=== PATIENT | male | born 1965 | race American Indian/Alaskan Native ===

== ENCOUNTER 2018-08-07 17:05 | Inpatient (IN) | payer OTHER ==
[2018-08-07] MEDS ORDERED: NACL 0.9% 1000 ML 1,000 ML IV ONE ×4 (17:06→21:18)
--- NOTE | 2018-08-07 17:19 | Emergency Department Report ---
HPI - General Time Seen by Provider: 08/07/18 17:06 - HPI HPI: 53 year old -Polish male presents to the emergency department via EMS from home unresponsive with hyperglycemia and suspicion for diabetic ketoacidosis. The patient has never been to this facility previously. He has a insulin pump and it does not appear to be attached to him and it reads that it needs to be calibrated. The patient was last seen awake and normal around 7:15 AM this morning by his roommate. The roommate returned from work the patient was altered. The patient has had nausea and vomiting and has urinated on himself. He responds slightly to painful stimuli but otherwise is unresponsive. ED Past Medical Hx - Medications Home Medications: Home Medications Medication Instructions Recorded Confirmed Last Taken Type AtorvaSTATin [Lipitor] 40 mg PO QHS 08/07/18 08/07/18 Unknown History Clopidogrel [Plavix] 75 mg PO DAILY 08/07/18 08/07/18 Unknown History Ergocalciferol [Vitamin D2] 50,000 units PO QWEEK 08/07/18 08/07/18 Unknown History Furosemide [Lasix TAB] 40 mg PO QDAY 08/07/18 08/07/18 Unknown History Metoprolol Tartrate 50 mg PO BID 08/07/18 08/07/18 Unknown History amLODIPine [Norvasc] 10 mg PO DAILY 08/07/18 08/07/18 Unknown History cloNIDine [Catapres] 0.2 mg PO TID 08/07/18 08/07/18 Unknown History hydrALAZINE [Apresoline TAB] 10 mg PO Q8HR 08/07/18 08/07/18 Unknown History ED Review of Systems ROS: Stated complaint: AMS Other details as noted in HPI Comment: Unobtainable due to pts medical conditions Physical Exam - Physical Exam Physical Exam: GENERAL: Patient is ill-appearing. HEENT: Normocephalic. Atraumatic. Patient has moist mucous membranes. EYES: Pupils are equal and reactive to light bilaterally. NECK: Supple. Trachea is midline. CHEST/LUNGS: Clear to auscultation. Patient has tachypnea with kussmaul breathing. There is some respiratory distress noted. HEART/CARDIOVASCULAR: Regular. There is mild to moderate tachycardia. There is no obvious murmur. ABDOMEN: Abdomen is soft, nontender. Patient has normal bowel sounds. There is no abdominal distention. SKIN: Skin is warm and dry. NEURO: Patient is mostly unresponsive but does open his eyes to painful stimuli and has been seen spontaneously moving his extremities. MUSCULOSKELETAL: There is no tenderness or deformity. There is no evidence of acute injury. ED Course - Consultations Consultation #1: 08/07/18 18:16 I spoke with the graphics intern on-call, Dr. Bravo, the patient's presentation with diabetic ketoacidosis, acute renal failure and severe hyperkalemia. She is asked for the patient to receive 2 A of sodium bicarbonate followed by a drip. The patient received 15 mg of albuterol and another dose of calcium gluconate. - ABG Interpretation Ph: 7.126 PO2: 217 Bicarbonate: 3 Interpretation: metabolic acidosis ED Medical Decision Making - Lab Data Result diagrams: 08/07/18 17:22 08/07/18 20:30 - EKG Data -: EKG Interpreted by Me - EKG Data Interpretation: other (Ectopic atrial tachycardia at 113 bpm, normal axis, prolonged QTc, RBBB, LPFB) - Radiology Data Radiology results: report reviewed, image reviewed interpreted by me: Chest x-ray shows some hyperinflation of the lungs. No obvious pneumonia, pleur al effusions, pneumothorax or focal consolidation. PROCEDURE: CT head without contrast. TECHNIQUE: Computerized tomography of the head was performed without contrast material. CT DOSE LENGTH PRODUCT: 1048.68 mGycm HISTORY: Altered mental status. COMPARISONS: None. FINDINGS: The ventricles are normal in size. There is an old lacunar infarct in the left basal ganglia. There are no mass lesions. There is no intracranial hemorrhage. The calvarium appears intact. The mastoid air cells and visualized paranasal sinuses are well aerated. IMPRESSION: No evidence of acute disease. This document is electronically signed by Rhonda Davila MD., August 07 2018 06:46:22 PM ET Transcribed By: MRM Dictated By: RHONDA DAVILA MD Electronically Authenticated By: RHONDA DAVILA MD Signed Date/Time: 08/07/18 6484 - Medical Decision Making This patient presents to the emergency department afterward and her unresponsive with a critical high blood sugar. The patient's EKG showed hyperacute, peaked T waves that appear consistent with hyperkalemia. Once the patient was in the emergency department his heart rate fluctuated up to about 200 with a wide QRS. For this reason the patient was immediately given calcium to stabilize the myocardium. The patient had Kussmaul breathing that appeared consistent with severe metabolic acidosis. Despite his tachypnea and signs of some mild respiratory distress, the patient kept his oxygenation up above 95% with the nonrebreather. The patient is mostly unresponsive but does wake up briefly to painful stimuli and was seen moving all of his extremities spontaneously. For These reasons he did not appear to require immediate intubation. Patient's labs came back showing severe diabetic ketoacidosis with a blood sugar of about 1560, venous acidosis of almost 7 and anion gap greater than 50. He was started on an insulin drip. His potassium came back at 8.6 and the graphics intern companion was contacted. He was given 2 ampules of sodium bicarbonate followed by sodium bicarbonate drip, albuterol and of course the insulin drip. He received multiple liters of IV resuscitation. His blood sugar has started to come down to about 1200. His last potassium level was 6.1 and his lactic acid level has come down from about 15-7. The patient will be admitted to the ICU for further evaluation and treatment and was accepted for admission by the hospitalist, Dr. Parkinson. - Differential Diagnosis DKA, HHNK, TIA, CVA, Substance abuse Critical Care Time: Yes Critical care time in (mins) excluding proc time.: 80 Critical care attestation.: If time is entered above; I have spent that time in minutes in the direct care of this critically ill patient, excluding procedure time. Critical care time sp ent on this patient during his initial evaluation, multiple re-evaluations, ordering and interpretation of labs and imaging, discussion with the graphics intern. There is a high probability of clinically significant, sudden, or life-threatening deterioration that has required multiple evaluations and direct attention, intervention, and management. Critical Care Time: 80 minutes ED Disposition Clinical Impression: ARF (acute renal failure) with tubular necrosis, Hyperkalemia, High anion gap metabolic acidosis, Lactic acidosis DKA (diabetic ketoacidoses) Qualifiers: Diabetes mellitus type: type 1 Diabetes mellitus complication detail: with coma Qualified Code(s): E10.11 - Type 1 diabetes mellitus with ketoacidosis with coma Disposition: 09 OP ADMIT IP TO THIS HOSP Is pt being admited?: Yes Condition: Critical Time of Disposition: 22:12
[2018-08-07 17:43] LABS: Mean Corpuscular HGB Conc 27 % (32-34); Mean Corpuscular Volume 103 fl (84-94); Platelet Count 293 K/mm3 (140-440); Red Cell Distribution Width 14.5 % (13.2-15.2)
[2018-08-07] MEDS ORDERED: ZOSYN/NS 4.5GM/100ML 4.5 GM/100 ML VIAL IV ONE (17:43)
[2018-08-07] MEDS ORDERED: CALCIUM CHLORIDE IV ONE (17:44)
[2018-08-07 17:54] LABS: Hematocrit 42.2 % (35.5-45.6); Hemoglobin 11.3 gm/dl (11.8-15.2)
[2018-08-07 17:58] LABS: Partial Thromboplastin Time 20.1 Sec. (24.2-36.6)
[2018-08-07 17:59] LABS: Albumin 3.7 g/dL (3.9-5); Calcium 9.7 mg/dL (8.4-10.2)
[2018-08-07] MEDS ORDERED: D50W (25GM) Syringe IV PRN ×3 (18:02→19:02)
[2018-08-07 18:07] LABS: Amorphous Crystals,Urine Few; Bilirubin,Urine NEG (Negative); Blood,Urine SM (Negative); Color,Urine Yellow (Yellow); Urobilinogen,Urine < 2.0 mg/dL (<2.0)
[2018-08-07] MEDS ORDERED: CALCIUM GLUCONATE 1,000 MG in NACL 0.9% 100 ML IV ONE (18:10)
[2018-08-07] MEDS ORDERED: PROVENTIL IH ONE (18:13)
[2018-08-07 18:24] LABS: Amphetamine Screen,Urine PRESUMPTIVE NEGATIVE; Benzodiazepines Screen,Urine PRESUMPTIVE NEGATIVE; Cannabinoid Screen,Urine PRESUMPTIVE NEGATIVE; Cocaine Screen,Urine PRESUMPTIVE NEGATIVE; Methadone Screen,Urine PRESUMPTIVE NEGATIVE; Opiate Screen,Urine PRESUMPTIVE NEGATIVE
[2018-08-07] MEDS ORDERED: SODIUM BICARBONATE 150 MEQ in D5W 1,000 ML IV ONE (18:30)
[2018-08-07 18:31] LABS: Chol/HDL Ratio 2.38 %
--- NOTE | 2018-08-07 18:33 | XRay Report ---
PROCEDURE: XR CHEST 1V AP TECHNIQUE: Frontal chest x-ray performed portably HISTORY: Altered Mental Status COMPARISONS: None FINDINGS: Normal heart size. Low volume exam. Mildly hyperexpanded and hyperlucent lungs suggestive of underlying emphysema. No focal infiltrate. Degenerative arthritis of bilateral glenohumeral joints. IMPRESSION: Mildly hyperlucent lungs suggestive of underlying emphysema. Low-volume exam. No acute cardiopulmonary abnormality.. This document is electronically signed by Latonia Tolbert MD., August 07 2018 06:31:47 PM ET
--- NOTE | 2018-08-07 18:48 | Cat Scan Report ---
PROCEDURE: CT head without contrast. TECHNIQUE: Computerized tomography of the head was performed without contrast material. CT DOSE LENGTH PRODUCT: 1048.68 mGycm HISTORY: Altered mental status. COMPARISONS: None. FINDINGS: The ventricles are normal in size. There is an old lacunar infarct in the left basal ganglia. There a re no mass lesions. There is no intracranial hemorrhage. The calvarium appears intact. The mastoid ai r cells and visualized paranasal sinuses are well aerated. IMPRESSION: No evidence of acute disease. This document is electronically signed by Reinaldo Rios MD., August 07 2018 06:46:22 PM ET
[2018-08-07] MEDS ORDERED: HumuLIN R 100 UNITS in NACL 0.9% 99 ML IV SCH (19:00)
[2018-08-07] MEDS ORDERED: SODIUM CHLORIDE FLUSH SYRINGE 10 ML IV PRN (19:02)
[2018-08-07] MEDS ORDERED: PROVENTIL IH PRN (19:02)
--- NOTE | 2018-08-07 19:07 | History and Physical Report ---
History of Present Illness Chief complaint: confused, Lethargic History of present illness: 53 YO Male with DM, Malnutrition presents to ED for evaluation. Pt is confused/lethargic and unable to provide history. Pt history taken from EMS, and ED staff. As per staff the patient was found to be confused by his roommate today. EMS was notified, and upon arrival the patient was found to be in distress and transported to [facility] ED. Pt seen and evaluated in ED and found to have DKA with serum glucose of 1580, Acidosis, Encephalopathy, and Acute Renal Failure. No further history obtainable. Pt admitted to ICU and initiated on DKA protocol. Pulmonary team consulted in ED. Nephrology consulted in ED. No prior admissions for review. All listed medication reconciled at time of admission. Past History Past Medical History: diabetes Past Surgical History: No surgical history, Other (UTO) Social history: single, other (lives with roommate). denies: smoking, alcohol abuse, prescription drug abuse Family history: no significant family history (UTO) Medications and Allergies Allergies Allergy/AdvReac Type Severity Reaction Status Date / Time No Known Allergies Allergy Verified 08/07/18 17:35 Home Medications Medication Instructions Recorded Confirmed Last Taken Type AtorvaSTATin [Lipitor] 40 mg PO QHS 08/07/18 08/07/18 Unknown History Clopidogrel [Plavix] 75 mg PO DAILY 08/07/18 08/07/18 Unknown History Ergocalciferol [Vitamin D2] 50,000 units PO QWEEK 08/07/18 08/07/18 Unknown History Furosemide [Lasix TAB] 40 mg PO QDAY 08/07/18 08/07/18 Unknown History Metoprolol Tartrate 50 mg PO BID 08/07/18 08/07/18 Unknown History amLODIPine [Norvasc] 10 mg PO DAILY 08/07/18 08/07/18 Unknown History cloNIDine [Catapres] 0.2 mg PO TID 08/07/18 08/07/18 Unknown History hydrALAZINE [Apresoline TAB] 10 mg PO Q8HR 08/07/18 08/07/18 Unknown History Active Meds: Active Medications Albuterol (Proventil) 2.5 mg IH Q3HRT PRN PRN Reason: Shortness Of Breath Amlodipine Besylate (Norvasc) 10 mg PO DAILY [facility] Atorvastatin Calcium (Lipitor) 40 mg PO QHS [facility] Clonidine HCl (Catapres) 0.2 mg PO TID [facility] Clopidogrel Bisulfate (Plavix) 75 mg PO DAILY [facility] Dextrose (D50w (25gm) Syringe) 0 ml IV PRN PRN PRN Reason: Hypoglycemia Dextrose (D50w (25gm) Syringe) 0 ml IV PRN PRN PRN Reason: Hypoglycemia Dextrose (D50w (25gm) Syringe) 0 ml IV ONCE PRN PRN Reason: Hypoglycemia Ergocalciferol (Vitamin D2) 50,000 unit PO QWEEK [facility] Furosemide (Lasix) 40 mg PO QDAY [facility] Hydralazine HCl (Apresoline) 10 mg PO Q8HR [facility] Insulin Human Regular 100 (units/ Sodium Chloride) 100 mls @ 7 mls/hr IV TITR [facility]; Protocol Sodium Bicarbonate 150 meq/ (Dextrose) 1,150 mls @ 125 mls/hr IV DIRECT ONE Stop: 08/08/18 03:41 Sodium Chloride (Nacl 0.9% 1000 Ml) 1,000 mls @ 999 mls/hr IV BOLUS ONE Stop: 08/07/18 20:02 Insulin Human Regular 100 (units/ Sodium Chloride) 100 mls @ 1 mls/hr IV TITR [facility]; Protocol Metoprolol Tartrate (Lopressor) 50 mg PO BID [facility] Sodium Chloride (Sodium Chloride Flush Syringe 10 Ml) 10 ml IV BID [facility] Sodium Chloride (Sodium Chloride Flush Syringe 10 Ml) 10 ml IV PRN PRN PRN Reason: LINE FLUSH Review of Systems ROS unobtainable: due to mental status Exam - Constitutional Vitals: Temp Pulse Resp BP Pulse Ox 94.9 F L 111 H 30 H 106/55 100 08/07/18 17:36 08/07/18 17:36 08/07/18 17:36 08/07/18 17:36 08/07/18 17:41 General appearance: Present: severe distress - EENT Eyes: Present: PERRL, miosis ENT: hearing intact, clear oral mucosa - Neck Neck: Present: supple, normal ROM - Respiratory Respiratory effort: labored Respiratory: bilateral: diminished, rhonchi - Cardiovascular Rhythm: other (tachycardia) Heart Sounds: Present: S1 & S2. Absent: rub, click - Extremities Extremities: pulses symmetrical, No edema Peripheral Pulses: within normal limits - Abdominal General gastrointestinal: Present: soft, non-tender, non-distended, normal bowel sounds Male genitourinary: Present: normal - Integumentary Integumentary: Present: warm, dry, clammy, decreased turgor - Musculoskeletal Musculoskeletal: generalized weakness - Psychiatric Psychiatric: no appropriate mood/affect, no intact judgment & insight, no memory intact - Neurologic Neurologic: no focal deficits, moves all extremities, no gait normal Results - Labs CBC & Chem 7: 08/07/18 17:22 08/07/18 18:46 Labs: Abnormal lab results 08/07/18 08/07/18 08/07/18 Range/Units 17:14 17:22 17:22 WBC 14.9 H (4.5-11.0) K/mm3 Hgb 11.3 L (11.8-15.2) gm/dl MCV 103 H (84-94) fl MCHC 27 L (32-34) % APTT (24.2-36.6) Sec. VBG pH (7.320-7.420) Sodium (137-145) mmol/L Potassium (3.6-5.0) mmol/L Chloride (98-107) mmol/L Carbon Dioxide (22-30) mmol/L BUN (9-20) mg/dL Creatinine (0.8-1.5) mg/dL Glucose (75-100) mg/dL POC Glucose > 500 H (70-105) Lactic Acid 14.00 H* (0.7-2.0) mmol/L Alkaline Phosphatase (35-129) units/L Troponin T (0.00-0.029) ng/mL Albumin (3.9-5) g/dL 08/07/18 08/07/18 08/07/18 Range/Units 17:22 17:22 17:22 WBC (4.5-11.0) K/mm3 Hgb (11.8-15.2) gm/dl MCV (84-94) fl MCHC (32-34) % APTT 20.1 L (24.2-36.6) Sec. VBG pH 7.012 L* (7.320-7.420) Sodium 127 L (137-145) mmol/L Potassium 8.4 H* (3.6-5.0) mmol/L Chloride 73.9 L (98-107) mmol/L Carbon Dioxide 4 L* (22-30) mmol/L BUN 65 H (9-20) mg/dL Creatinine 4.5 H (0.8-1.5) mg/dL Glucose 1580 H* (75-100) mg/dL POC Glucose (70-105) Lactic Acid (0.7-2.0) mmol/L Alkaline Phosphatase 173 H (35-129) units/L Troponin T 0.104 H* (0.00-0.029) ng/mL Albumin 3.7 L (3.9-5) g/dL Assessment and Plan - Patient Problems (1) DKA (diabetic ketoacidoses) Current Visit: Yes Status: Acute Qualifiers: Diabetes mellitus complication detail: with coma Plan to address problem: Admit to ICU: Initiate DKA protocol, Insulin drip, Serial BMP, monitor anion gap, IVF resuscitation, monitor uop q shift,. The high probability of a clinically significant, sudden or life threatening deterioration of the [endocrine, neuro, respiratory, renal] system(s) required my full and direct attention, intervention and personal management. The aggregate critical care time was [65] minutes. This time is in addition to time spent performing reported procedures but includes the following: [x] Data Review and interpretation [x] Patient assessment and monitoring of vital signs [x] Documentation [x] Medication orders and management (2) Encephalopathies Current Visit: Yes Status: Acute Plan to address problem: CT head, neuro check, treat dka, IVF resuscitation therapy, (3) Acidosis Current Visit: Yes Status: Acute Plan to address problem: Bicarbonate drip, IVF resuscitation, nephrology consulted and recommend bicarb drip, treat dka (4) ARF (acute renal failure) with tubular necrosis Current Visit: Yes Status: Acute Plan to address problem: IVF resuscitation therapy,monitor uop q shift, avoid nephrotoxic agents. (5) SIRS (systemic inflammatory response syndrome) Current Visit: Yes Status: Acute Plan to address problem: Empiric antibiotic therapy, CBC, CMP, (6) DVT prophylaxis Current Visit: Yes Status: Acute Plan to address problem: SCD to BLE while in bed, prophylactic heparin
[2018-08-07 19:28] LABS: Calcium 10.2 mg/dL (8.4-10.2)
[2018-08-07] MEDS ORDERED: HumuLIN R IV ONE (19:42)
[2018-08-07] MEDS ORDERED: ZOSYN/NS 2.25 GM/50ML 2.25 GM/50 ML BAG IV SCH (20:00)
[2018-08-07] MEDS: CATAPRES PO SCH (20:16)
[2018-08-07] MEDS ORDERED: HumuLIN R ONE (20:44)
[2018-08-07] MEDS ORDERED: NACL 0.9% 1000 ML 1,000 ML ONE (20:45)
[2018-08-07 20:52] LABS: BUN/Creatinine Ratio 15; Blood Urea Nitrogen 69 mg/dL (9-20); Calcium 9.4 mg/dL (8.4-10.2); Hemolysis Index 170
[2018-08-07 20:53] LABS: Calcium 8.6 mg/dL (8.4-10.2)
[2018-08-07] MEDS ORDERED: NACL 0.9% 1000 ML 2,000 ML ONE (21:02)
--- NOTE | 2018-08-07 21:23 | Consultation ---
History of Present Illness - Reason for Consult acute renal failure, hyperkalemia, metabolic acidosis - History of Present Illness History is limited obtained from chart as patient is lethargic and tachpneic unable to provide a history 53 year old with medical history signficant for Uncontrolled DM type II brought to the ER today after being noted to be confused by his roommate. He was noted to be lethargic, tachycardic and tachypneic . Labs signficant for lactate of 12 , Potassium of 8.4 and a serum bicarbonate of 5 .it is unclear when he took his last dose of insulin Nephrology consulted for hyperkalemia , LAMONT and electrolyte abnormalities. Past History Past Medical History: diabetes Past Surgical History: No surgical history, Other (UTO) Social history: single, other (lives with roommate). denies: smoking, alcohol abuse, prescription drug abuse Family history: no significant family history (UTO) Medications and Allergies Allergies Allergy/AdvReac Type Severity Reaction Status Date / Time No Known Allergies Allergy Verified 08/07/18 17:35 Home Medications Medication Instructions Recorded Confirmed Last Taken Type AtorvaSTATin [Lipitor] 40 mg PO QHS 08/07/18 08/07/18 Unknown History Clopidogrel [Plavix] 75 mg PO DAILY 08/07/18 08/07/18 Unknown History Ergocalciferol [Vitamin D2] 50,000 units PO QWEEK 08/07/18 08/07/18 Unknown History Furosemide [Lasix TAB] 40 mg PO QDAY 08/07/18 08/07/18 Unknown History Metoprolol Tartrate 50 mg PO BID 08/07/18 08/07/18 Unknown History amLODIPine [Norvasc] 10 mg PO DAILY 08/07/18 08/07/18 Unknown History cloNIDine [Catapres] 0.2 mg PO TID 08/07/18 08/07/18 Unknown History hydrALAZINE [Apresoline TAB] 10 mg PO Q8HR 08/07/18 08/07/18 Unknown History Active Meds: Active Medications Albuterol (Proventil) 2.5 mg IH Q3HRT PRN PRN Reason: Shortness Of Breath Amlodipine Besylate (Norvasc) 10 mg PO DAILY [facility] Atorvastatin Calcium (Lipitor) 40 mg PO QHS [facility] Clonidine HCl (Catapres) 0.2 mg PO TID [facility] Clopidogrel Bisulfate (Plavix) 75 mg PO DAILY [facility] Dextrose (D50w (25gm) Syringe) 0 ml IV PRN PRN PRN Reason: Hypoglycemia Dextrose (D50w (25gm) Syringe) 0 ml IV ONCE PRN PRN Reason: Hypoglycemia Ergocalciferol (Vitamin D2) 50,000 unit PO QWEEK [facility] Heparin Sodium (Porcine) (Heparin) 5,000 unit SUB-Q Q12HR [facility] Hydralazine HCl (Apresoline) 10 mg PO Q8HR [facility] Sodium Bicarbonate 150 meq/ (Dextrose) 1,150 mls @ 200 mls/hr IV DIRECT ONE Stop: 08/08/18 00:14 Last Admin: 08/07/18 19:30 Dose: 125 mls/hr Documented by: Insulin Human Regular 100 (units/ Sodium Chloride) 100 mls @ 1 mls/hr IV TITR [facility]; Protocol Piperacillin Sod/Tazobactam Sod (Zosyn/Ns 2.25 Gm/50ml) 2.25 gm in 50 mls @ 100 mls/hr IV Q8H [facility] Stop: 08/10/18 23:59 Sodium Chloride (Nacl 0.9% 1000 Ml) 1,000 mls @ 999 mls/hr IV BOLUS ONE Stop: 08/07/18 22:18 Last Admin: 08/07/18 21:19 Dose: 999 mls/hr Documented by: Metoprolol Tartrate (Lopressor) 50 mg PO BID [facility] Sodium Bicarbonate (Sodium Bicarbonate 50meq Syringe) 100 meq IV ONCE ONE Stop: 08/07/18 21:22 Sodium Chloride (Sodium Chloride Flush Syringe 10 Ml) 10 ml IV BID [facility] Sodium Chloride (Sodium Chloride Flush Syringe 10 Ml) 10 ml IV PRN PRN PRN Reason: LINE FLUSH Review of Systems ROS unobtainable: due to mental status Exam - Vital Signs Vital signs: Vital Signs Temp Pulse Resp BP Pulse Ox 94.9 F L 111 H 30 H 106/55 100 08/07/18 17:36 08/07/18 17:36 08/07/18 17:36 08/07/18 17:36 08/07/18 17:36 - General Appearance General appearance: appears stated age, moderate distress, anxious, other (tachpneic. chills) EENT: ATNC, PERRL, mucous membranes dry Neck: Present: neck supple, trachea midline Respiratory: Clear to Ascultation, Using Accesory Muscles Heart: tachycardia, S1S2 Gastrointestinal: Present: normal, normoactive bowel sounds Integumentary: no rash Neurologic: alert and oriented x3 Musculoskeletal: Absent: joint swelling Psychiatric: depressed Results - Lab Results 08/07/18 17:22 08/07/18 20:30 Most recent lab results Calcium 8.6 mg/dL (8.4-10.2) 08/07/18 20:30 Phosphorus 12.20 mg/dL (2.5-4.5) H 08/07/18 20:00 Magnesium 3.00 mg/dL (1.7-2.3) H 08/07/18 20:00 Assessment and Plan - Patient Problems (1) Acute kidney injury (nontraumatic) Current Visit: Yes Status: Acute Plan to address problem: Acute Kidney injury: -Severe Acute kidney injury - Baseline creatinine unknown - current creatinine : 4.9 - Severe hypovoluemia and intravascular depletion with marked elevated lactate of 12!!!! - I personally oversaw patient administered 5 L of Saline bolus in the ED . - Ferrari placed with minimal output -Serial labs -Will continue Bicarb infusion @200cc/hr. - Avoid nephrotoxins - obtain renal US (2) DKA (diabetic ketoacidoses) Current Visit: Yes Status: Acute Qualifiers: Diabetes mellitus type: type 1 Diabetes mellitus complication detail: with coma Qualified Code(s): E10.11 - Type 1 diabetes mellitus with ketoacidosis with coma Plan to address problem: DKA - anion gap metabolic acidosis 2/2 DKA and renal failure Glucose greater than 1500mg/dl - admitted with hyponatremia however with correction for degree of hyperglycemia the sodium is falsely low and will worsen with hydration however given hy povoluemic hypernatremia will replete volume first. - severe acidosis with tachypnea - received 100meq of bicarb without improvement - received additional 100meq of bicarb -Then continue bicarb infusion -received insulin bolus - continue insulin infusion - monitor fingersticks. (3) Hyperkalemia Current Visit: Yes Status: Acute Plan to address problem: Severe life threatening hyperkalemia Potassium : 8.4 - EKG with peaked T waves - hyperkalemia is 2/2 cellular shifts in the setting of hyperglycemia aggravated by renal failure - Will give 2 amps of calcium gluconate - continue insulin adminstration per DKA protocol - Repeat potassium STAT ordered at bedside , potassium improved from 8.4- 6.1 - Albuterol 20mg x 1 (4) SIRS (systemic inflammatory response syndrome) Current Visit: Yes Status: Acute Plan to address problem: SIRS -LEUKOCYTOSIS , tachypnea , tachycardia - marked elevated lactate and organ compromise - has been started on antbiotics for concern for severe sepsis. Critical care time spent at bedside evaluating patient and resuscitation with fluids was 40mins.
[2018-08-07 21:27] LABS: Band Neutrophils # (Manual) 0.1 K/mm3; Basophils % (Manual) 0 % (0.0-1.8); Eosinophils % (Manual) 0 % (0.0-4.3); Total Cells Counted 100
[2018-08-07 21:28] LABS: Anisocytosis 1+; Platelet Estimate Consistent w Auto
[2018-08-07] MEDS ORDERED: ZOSYN/NS 4.5GM/100ML 4.5 GM/100 ML VIAL IV SCH (22:00)
[2018-08-07] MEDS: ZOSYN/NS 2.25 GM/50ML 2.25 GM/50 ML BAG IV SCH (22:00)
[2018-08-07] MEDS ORDERED: LOPRESSOR ONE ×2 (23:01→23:04)
[2018-08-07] MEDS ORDERED: HEPARIN ONE (23:02)
[2018-08-07] MEDS ORDERED: APRESOLINE ONE (23:05)
[2018-08-07] MEDS: APRESOLINE PO SCH (23:11)
[2018-08-07] MEDS: HEPARIN SUB-Q SCH (23:12)
[2018-08-07] MEDS: SODIUM CHLORIDE FLUSH SYRINGE 10 ML IV SCH (23:13)
[2018-08-07] MEDS: LOPRESSOR PO SCH (23:13)
[2018-08-07 23:24] LABS: Calcium 8.4 mg/dL (8.4-10.2)
[2018-08-08 00:47] LABS: Calcium 8.2 mg/dL (8.4-10.2)
[2018-08-08] MEDS ORDERED: NACL 0.9% 1000 ML 1,000 ML IV SCH (01:00)
[2018-08-08] MEDS ORDERED: SODIUM CHLORIDE IV ONE (01:00)
[2018-08-08] MEDS ORDERED: SODIUM BICARBONATE 50 MEQ IV ONE (01:00)
[2018-08-08] MEDS ORDERED: POTASSIUM CHLORIDE 20 MEQ IV ONE (01:00)
[2018-08-08] MEDS ORDERED: LACTATED RINGERS 1,000 ML ONE (01:14)
[2018-08-08] MEDS ORDERED: LACTATED RINGERS 1,000 ML IV ONE (01:15)
[2018-08-08 01:56] LABS: Calcium 8.6 mg/dL (8.4-10.2)
[2018-08-08] MEDS: HumuLIN R 100 UNITS in NACL 0.9% 99 ML IV SCH ×2 (02:48→06:16)
[2018-08-08 03:08] LABS: Calcium 8.4 mg/dL (8.4-10.2)
[2018-08-08 03:37] LABS: Calcium 8.8 mg/dL (8.4-10.2)
[2018-08-08 05:04] LABS: Calcium 8.5 mg/dL (8.4-10.2)
[2018-08-08 05:30] LABS: Calcium 8.8 mg/dL (8.4-10.2)
[2018-08-08] MEDS: ZOSYN/NS 2.25 GM/50ML 2.25 GM/50 ML BAG IV SCH (05:45)
[2018-08-08] MEDS ORDERED: NS 0.45/KCL 20MEQ 20 MEQ/1,000 ML BAG IV SCH (06:00)
[2018-08-08] MEDS: APRESOLINE PO SCH ×3 (06:29→21:42)
[2018-08-08 06:55] LABS: Calcium 8.4 mg/dL (8.4-10.2)
[2018-08-08] MEDS: CATAPRES PO SCH ×3 (08:15→21:42)
[2018-08-08 08:51] LABS: Calcium 8.3 mg/dL (8.4-10.2)
--- NOTE | 2018-08-08 09:40 | Progress Note ---
Assessment and Plan Impression * Acute kidney injury * Hyperkalemia * DKA * Severe metabolic acidosis secondary to above Recommendations * Patient's hyperkalemia has been corrected with medical management and treatment of DKA * He is currently nonoliguric. Serum creatinine however remains elevated * His urine shows 2+ dipstick protein and small blood and 16 RBCs per high-power field. * Check renal ultrasound, fractional excretion of sodium as well as vasculitis w orkup * Continue aggressive IV hydration * Continue management for DKA * Renal ultrasound to assess kidney size and echogenicity * He may have some degree of underlying chronic kidney disease. Baseline renal function is not known * Avoid nephrotoxins * Monitor fluid status and electrolytes closely Subjective Date of service: 08/08/18 Interval history: Patient seen in the emergency room. Waiting for an ICU bed. He is currently obtunded. Unable to get any information from him. He appears comfortable. Currently on oxygen at 2 L/m. Oxygen saturation 100%. Has indwelling Ferrari catheter in place Objective - Vital Signs Vital signs: Vital Signs - 12hr 08/07/18 08/07/18 08/07/18 22:01 22:23 22:30 Temperature 98 F Pulse Rate 127 H 129 H Respiratory 24 25 H Rate Blood Pressure 153/57 156/64 Blood Pressure [Left] O2 Sat by Pulse 100 100 Oximetry 08/07/18 08/07/18 08/07/18 23:00 23:11 23:13 Temperature Pulse Rate 128 H 129 H 129 H Respiratory 25 H Rate Blood Pressure 165/62 165/62 165/62 Blood Pressure [Left] O2 Sat by Pulse 100 Oximetry 08/07/18 08/08/18 08/08/18 23:30 00:00 00:30 Temperature Pulse Rate 128 H 97 H 89 Respiratory 32 H 24 30 H Rate Blood Pressure 152/58 124/54 124/60 Blood Pressure [Left] O2 Sat by Pulse 100 100 100 Oximetry 08/08/18 08/08/18 08/08/18 01:01 01:30 01:42 Temperature Pulse Rate 91 H 93 H 94 H Respiratory 22 22 22 Rate Blood Pressure 147/65 150/69 Blood Pressure 150/69 [Left] O2 Sat by Pulse 100 100 100 Oximetry 08/08/18 08/08/18 08/08/18 02:00 02:30 03:00 Temperature Pulse Rate 96 H 101 H 99 H Respiratory 23 18 24 Rate Blood Pressure 148/65 141/63 148/62 Blood Pressure [Left] O2 Sat by Pulse 100 100 99 Oximetry 08/08/18 08/08/18 08/08/18 03:30 04:00 04:27 Temperature 99 F Pulse Rate 97 H 93 H 93 H Respiratory 20 18 17 Rate Blood Pressure 149/65 140/63 Blood Pressure 152/70 [Left] O2 Sat by Pulse 100 100 100 Oximetry 08/08/18 08/08/18 08/08/18 04:30 05:00 05:30 Temperature Pulse Rate 97 H 94 H 94 H Respiratory 16 18 14 Rate Blood Pressure 144/61 145/68 149/63 Blood Pressure [Left] O2 Sat by Pulse 100 100 100 Oximetry 08/08/18 06:00 Temperature Pulse Rate 96 H Respiratory 23 Rate Blood Pressure 146/60 Blood Pressure [Left] O2 Sat by Pulse 100 Oximetry - General Appearance General appearance: well-developed, well-nourished, appears stated age EENT: PERRL, mucous membranes moist Neck: no JVD, no thyromegaly, no carotid bruit, supple Respiratory: Present: Clear to Ascultation Cardiology: regular, normal heart rate Gastrointestinal: normal, normoactive bowel sounds Integumentary: no rash, other (no edema) - Lab 08/07/18 17:22 08/08/18 08:14 Most recent lab results Calcium 8.3 mg/dL (8.4-10.2) L 08/08/18 08:14 Phosphorus 12.20 mg/dL (2.5-4.5) H 08/07/18 20:00 Magnesium 3.00 mg/dL (1.7-2.3) H 08/07/18 20:00 Medications & Allergies - Medications Allergies/Adverse Reactions: Allergies No Known Allergies Allergy (Verified 08/07/18 17:35) Home Medications: Home Medications Medication Instructions Recorded Confirmed Last Taken Type AtorvaSTATin [Lipitor] 40 mg PO QHS 08/07/18 08/07/18 Unknown History Clopidogrel [Plavix] 75 mg PO DAILY 08/07/18 08/07/18 Unknown History Ergocalciferol [Vitamin D2] 50,000 units PO QWEEK 08/07/18 08/07/18 Unknown History Furosemide [Lasix TAB] 40 mg PO QDAY 08/07/18 08/07/18 Unknown History Metoprolol Tartrate 50 mg PO BID 08/07/18 08/07/18 Unknown History amLODIPine [Norvasc] 10 mg PO DAILY 08/07/18 08/07/18 Unknown History cloNIDine [Catapres] 0.2 mg PO TID 08/07/18 08/07/18 Unknown History hydrALAZINE [Apresoline TAB] 10 mg PO Q8HR 08/07/18 08/07/18 Unknown History Active Medications: Generic Name Dose Route Start Last Admin Trade Name Freq PRN Reason Stop Dose Admin Albuterol 2.5 mg 08/07/18 19:02 Proventil IH Q3HRT PRN Shortness Of Breath Amlodipine Besylate 10 mg 08/08/18 10:00 Norvasc PO DAILY [facility] Atorvastatin Calcium 40 mg 08/07/18 22:00 08/07/18 23:12 Lipitor PO 40 mg QHS [facility] Administration Clonidine HCl 0.2 mg 08/07/18 20:00 08/07/18 20:16 Catapres PO Not Given TID [facility] Clopidogrel Bisulfate 75 mg 08/08/18 10:00 Plavix PO DAILY [facility] Dextrose 0 ml 08/07/18 19:02 D50w (25gm) Syringe IV PRN PRN Hypoglycemia Ergocalciferol 50,000 unit 08/14/18 10:00 Vitamin D2 PO QWEEK [facility] Heparin Sodium (Porcine) 5,000 unit 08/07/18 22:00 08/07/18 23:12 Heparin SUB-Q 5,000 unit Q12HR [facility] Administration Hydralazine HCl 10 mg 08/07/18 22:00 08/08/18 06:29 Apresoline PO 10 mg Q8HR [facility] Administration Insulin Human Regular 100 100 mls @ 1 mls/hr 08/07/18 20:00 08/08/18 06:46 units/ Sodium Chloride IV 22 units/hr TITR [facility] 22 mls/hr Titration Protocol 1 UNITS/HR Piperacillin Sod/Tazobactam Sod 2.25 gm in 50 mls @ 100 mls/hr 08/07/18 22:00 08/08/18 05:45 Zosyn/Ns 2.25 Gm/50ml IV 08/10/18 23:59 100 mls/hr Q8H [facility] Administration Potassium Chloride/Sodium Chloride 20 meq in 1,000 mls @ 150 mls/hr 08/08/18 06:00 08/08/18 06:12 Ns 0.45/Kcl 20meq IV 150 mls/hr DIRECT [facility] Administration Metoprolol Tartrate 50 mg 08/07/18 22:00 08/07/18 23:13 Lopressor PO 50 mg BID [facility] Administration Sodium Chloride 10 ml 08/07/18 22:00 08/07/18 23:13 Sodium Chloride Flush Syringe 10 Ml IV 10 ml BID [facility] Administration Sodium Chloride 10 ml 08/07/18 19:02 Sodium Chloride Flush Syringe 10 Ml IV PRN PRN LINE FLUSH
[2018-08-08 09:55] LABS: Calcium 8.8 mg/dL (8.4-10.2)
[2018-08-08] MEDS ORDERED: LASIX PO SCH (10:00)
--- NOTE | 2018-08-08 10:38 | Progress Note ---
Assessment and Plan Assessment and plan: 53-year-old man who was found unresponsive, he was found to have very elevated glucose. The patient has insulin pump, it was not attached to him at the time of admission. He was found by his roommates who didn't called the EMS, he had vomited on itself and urinated on himself at that time. CT head no acute findings Chest x-ray suggestive of emphysema, no acute findings Diagnoses Hyperglycemic hyperosmolar nonketotic state Pseudohyponatremia Acute kidney injury due to vasomotor nephropathy Acute metabolic encephalopathy Uncontrolled diabetes Sepsis with organ dysfunction gram neg bacteremia htn urgency Plan Patient has been on insulin drip, will attempt to transition to sq insulins Continue IV fluids Nephrology consultation given acute kidney injury, however his baseline creatinine is unknown source at this time SIRS; no evidence of infection at this time -ID consult, iv abx, fup cultures optimize BP meds DVT prophylaxis with heparin Critical care time 35 minutes History Interval history: Review of systems Constitutional: having fevers and malaise, no joint pains CVS: No chest pain, no orthopnea, no dyspnea on exertion, no pedal edema GI: No abdominal pain, no diarrhea, no vomiting, no constipation Respiratory: No shortness of breath, no wheezing, no coughing Hospitalist Physical - Physical exam Narrative exam: General.: toxic appearance, lethargic HEENT: Moist mucous membranes, extraocular muscles intact, no lymphadenopathy Neck: supple Cardiac: S1-S2 heard Lungs: clear to auscultation bilaterally Abdomen: soft , nontender, nondistended, bowel sounds positive Extremities: no edema clubbing or cyanosis Skin: no rash or lesions Neurologic: no gross focal deficits Psych: calm, and cooperative - Constitutional Vitals: Temp Pulse Resp BP Pulse Ox 99 F 96 H 23 146/60 100 08/08/18 04:27 08/08/18 06:00 08/08/18 06:00 08/08/18 06:00 08/08/18 06:00 General appearance: Present: severe distress Results - Labs CBC & Chem 7: 08/09/18 11:06 08/09/18 04:34 Labs: Laboratory Last Values WBC 14.9 K/mm3 (4.5-11.0) H 08/07/18 17:22 RBC 4.10 M/mm3 (3.65-5.03) 08/07/18 17:22 Hgb 11.3 gm/dl (11.8-15.2) L 08/07/18 17:22 Hct 42.2 % (35.5-45.6) 08/07/18 17:22 MCV 103 fl (84-94) H 08/07/18 17:22 MCH 28 pg (28-32) 08/07/18 17:22 MCHC 27 % (32-34) L 08/07/18 17:22 RDW 14.5 % (13.2-15.2) 08/07/18 17:22 Plt Count 293 K/mm3 (140-440) 08/07/18 17:22 Add Manual Diff Complete 08/07/18 17:22 Total Counted 100 08/07/18 17:22 Seg Neuts % (Manual) 76.0 % (40.0-70.0) H 08/07/18 17:22 Band Neutrophils % 1.0 % 08/07/18 17:22 Lymphocytes % (Manual) 12.0 % (13.4-35.0) L 08/07/18 17:22 Reactive Lymphs % (Man) 0 % 08/07/18 17:22 Monocytes % (Manual) 11.0 % (0.0-7.3) H 08/07/18 17:22 Eosinophils % (Manual) 0 % (0.0-4.3) 08/07/18 17:22 Basophils % (Manual) 0 % (0.0-1.8) 08/07/18 17:22 Metamyelocytes % 0 % 08/07/18 17:22 Myelocytes % 0 % 08/07/18 17:22 Promyelocytes % 0 % 08/07/18 17:22 Blast Cells % 0 % 08/07/18 17:22 Nucleated RBC % Not Reportable 08/07/18 17:22 Seg Neutrophils # Man 11.3 K/mm3 (1.8-7.7) H 08/07/18 17:22 Band Neutrophils # 0.1 K/mm3 08/07/18 17:22 Lymphocytes # (Manual) 1.8 K/mm3 (1.2-5.4) 08/07/18 17:22 Abs React Lymphs (Man) 0.0 K/mm3 08/07/18 17:22 Monocytes # (Manual) 1.6 K/mm3 (0.0-0.8) H 08/07/18 17:22 Eosinophils # (Manual) 0.0 K/mm3 (0.0-0.4) 08/07/18 17:22 Basophils # (Manual) 0.0 K/mm3 (0.0-0.1) 08/07/18 17:22 Metamyelocytes # 0.0 K/mm3 08/07/18 17:22 Myelocytes # 0.0 K/mm3 08/07/18 17:22 Promyelocytes # 0.0 K/mm3 08/07/18 17:22 Blast Cells # 0.0 K/mm3 08/07/18 17:22 WBC Morphology Not Reportable 08/07/18 17:22 Hypersegmented Neuts Not Reportable 08/07/18 17:22 Hyposegmented Neuts Not Reportable 08/07/18 17:22 Hypogranular Neuts Not Reportable 08/07/18 17:22 Smudge Cells Not Reportable 08/07/18 17:22 Toxic Granulation Not Reportable 08/07/18 17:22 Toxic Vacuolation Not Reportable 08/07/18 17:22 Dohle Bodies Not Reportable 08/07/18 17:22 Pelger-Huet Anomaly Not Reportable 08/07/18 17:22 Kojo Rods Not Reportable 08/07/18 17:22 Platelet Estimate Consistent w auto 08/07/18 17:22 Clumped Platelets Not Reportable 08/07/18 17:22 Plt Clumps, EDTA Not Reportable 08/07/18 17:22 Large Platelets Not Reportable 08/07/18 17:22 Giant Platelets Not Reportable 08/07/18 17:22 Platelet Satelliting Not Reportable 08/07/18 17:22 Plt Morphology Comment Not Reportable 08/07/18 17:22 RBC Morphology Not Reportable 08/07/18 17:22 Dimorphic RBCs Not Reportable 08/07/18 17:22 Polychromasia Not Reportable 08/07/18 17:22 Hypochromasia Not Reportable 08/07/18 17:22 Poikilocytosis Not Reportable 08/07/18 17:22 Anisocytosis 1+ 08/07/18 17:22 Microcytosis Not Reportable 08/07/18 17:22 Macrocytosis Not Reportable 08/07/18 17:22 Spherocytes Not Reportable 08/07/18 17:22 Pappenheimer Bodies Not Reportable 08/07/18 17:22 Sickle Cells Not Reportable 08/07/18 17:22 Target Cells Not Reportable 08/07/18 17:22 Tear Drop Cells Not Reportable 08/07/18 17:22 Ovalocytes Not Reportable 08/07/18 17:22 Helmet Cells Not Reportable 08/07/18 17:22 [place] Bodies Not Reportable 08/07/18 17:22 [place] Rings Not Reportable 08/07/18 17:22 Niesha Cells Not Reportable 08/07/18 17:22 Bite Cells Not Reportable 08/07/18 17:22 Crenated Cell Not Reportable 08/07/18 17:22 Elliptocytes Not Reportable 08/07/18 17:22 Acanthocytes (Spur) Not Reportable 08/07/18 17:22 Rouleaux Not Reportable 08/07/18 17:22 Hemoglobin C Crystals Not Reportable 08/07/18 17:22 Schistocytes Not Reportable 08/07/18 17:22 Malaria parasites Not Reportable 08/07/18 17:22 Sanjay Bodies Not Reportable 08/07/18 17:22 Hem Pathologist Commnt No 08/07/18 17:22 PT 13.8 Sec. (12.2-14.9) 08/07/18 17:22 INR 1.00 (0.87-1.13) 08/07/18 17:22 APTT 20.1 Sec. (24.2-36.6) L 08/07/18 17:22 POC ABG pH 7.126 (7.35-7.45) L 08/07/18 18:25 POC ABG pO2 217 (80-105) H 08/07/18 18:25 POC ABG HCO3 3.4 (22-26 mml/L) 08/07/18 18:25 POC ABG Total CO2 < 5 (23-27mmol/L) 08/07/18 18:25 POC ABG O2 Sat 100 08/07/18 18:25 POC ABG Base Excess -26 ((-2) - (+3)mmol/L) 08/07/18 18:25 VBG pH 7.454 (7.320-7.420) H 08/08/18 05:10 FiO2 98 % 08/07/18 18:25 Sodium 153 mmol/L (137-145) H 08/08/18 09:23 Potassium 3.3 mmol/L (3.6-5.0) L 08/08/18 09:23 Chloride 110.8 mmol/L (98-107) H 08/08/18 09:23 Carbon Dioxide 30 mmol/L (22-30) 08/08/18 09:23 Anion Gap 16 mmol/L 08/08/18 09:23 BUN 58 mg/dL (9-20) H 08/08/18 09:23 Creatinine 4.3 mg/dL (0.8-1.5) H 08/08/18 09:23 Estimated GFR 17 ml/min 08/08/18 09:23 BUN/Creatinine Ratio 13 % 08/08/18 09:23 Glucose 302 mg/dL (75-100) H 08/08/18 09:23 POC Glucose > 500 (70-105) H 08/07/18 17:14 Hemoglobin A1c 10.2 % (4-6) H 08/07/18 19:09 Lactic Acid 3.10 mmol/L (0.7-2.0) H* 08/08/18 09:23 Calcium 8.8 mg/dL (8.4-10.2) 08/08/18 09:23 Phosphorus 12.20 mg/dL (2.5-4.5) H 08/07/18 20:00 Magnesium 3.00 mg/dL (1.7-2.3) H 08/07/18 20:00 Total Bilirubin 0.30 mg/dL (0.1-1.2) 08/07/18 17:22 AST 24 units/L (5-40) 08/07/18 17:22 ALT 23 units/L (7-56) 08/07/18 17:22 Alkaline Phosphatase 173 units/L (35-129) H 08/07/18 17:22 Ammonia 58.0 umol/L (25-60) 08/07/18 17:22 Total Creatine Kinase 104 units/L (55-170) 08/07/18 17:22 Troponin T 0.098 ng/mL (0.00-0.029) H 08/07/18 22:47 Total Protein 7.7 g/dL (6.3-8.2) 08/07/18 17:22 Albumin 3.7 g/dL (3.9-5) L 08/07/18 17:22 Albumin/Globulin Ratio 0.9 % 08/07/18 17:22 Triglycerides 143 mg/dL (2-149) 08/07/18 17:22 Cholesterol 117 mg/dL (50-199) 08/07/18 17:22 LDL Cholesterol Direct 62 mg/dL (50-130) 08/07/18 17:22 HDL Cholesterol 49 mg/dL (40-59) 08/07/18 17:22 Cholesterol/HDL Ratio 2.38 % 08/07/18 17:22 TSH 1.240 mlU/mL (0.270-4.200) 08/07/18 17:22 Urine Color Yellow (Yellow) 08/07/18 17:35 Urine Turbidity Slightly-cloudy (Clear) 08/07/18 17:35 Urine pH 5.0 (5.0-7.0) 08/07/18 17:35 Ur Specific [place] 1.024 (1.003-1.030) 08/07/18 17:35 Urine Protein 100 mg/dl mg/dL (Negative) 08/07/18 17:35 Urine Glucose (UA) >=500 mg/dL (Negative) 08/07/18 17:35 Urine Ketones 20 mg/dL (Negative) 08/07/18 17:35 Urine Blood Sm (Negative) 08/07/18 17:35 Urine Nitrite Neg (Negative) 08/07/18 17:35 Urine Bilirubin Neg (Negative) 08/07/18 17:35 Urine Urobilinogen < 2.0 mg/dL (<2.0) 08/07/18 17:35 Ur Leukocyte Esterase Neg (Negative) 08/07/18 17:35 Urine WBC (Auto) 1.0 /HPF (0.0-6.0) 08/07/18 17:35 Urine RBC (Auto) 16.0 /HPF (0.0-6.0) 08/07/18 17:35 Amorphous Crystals Few 08/07/18 17:35 Urine Opiates Screen Presumptive negative 08/07/18 17:35 Urine Methadone Screen Presumptive negative 08/07/18 17:35 Ur Barbiturates Screen Presumptive negative 08/07/18 17:35 Ur Phencyclidine Scrn Presumptive negative 08/07/18 17:35 Ur Amphetamines Screen Presumptive negative 08/07/18 17:35 U Benzodiazepines Scrn Presumptive negative 08/07/18 17:35 Urine Cocaine Screen Presumptive negative 08/07/18 17:35 U Marijuana (THC) Screen Presumptive negative 08/07/18 17:35 Drugs of Abuse Note Disclamer 08/07/18 17:35 Plasma/Serum Alcohol < 0.01 % (0-0.07) 08/07/18 17:22 Active Medications - Current Medications Current Medications: Generic Name Dose Route Start Last Admin Trade Name Freq PRN Reason Stop Dose Admin Albuterol 2.5 mg 08/07/18 19:02 Proventil IH Q3HRT PRN Shortness Of Breath Amlodipine Besylate 10 mg 08/08/18 10:00 Norvasc PO DAILY [facility] Atorvastatin Calcium 40 mg 08/07/18 22:00 08/07/18 23:12 Lipitor PO 40 mg QHS [facility] Administration Clonidine HCl 0.2 mg 08/07/18 20:00 08/07/18 20:16 Catapres PO Not Given TID [facility] Clopidogrel Bisulfate 75 mg 08/08/18 10:00 Plavix PO DAILY [facility] Dextrose 0 ml 08/07/18 19:02 D50w (25gm) Syringe IV PRN PRN Hypoglycemia Ergocalciferol 50,000 unit 08/14/18 10:00 Vitamin D2 PO QWEEK [facility] Heparin Sodium (Porcine) 5,000 unit 08/07/18 22:00 08/07/18 23:12 Heparin SUB-Q 5,000 unit Q12HR [facility] Administration Hydralazine HCl 10 mg 08/07/18 22:00 08/08/18 06:29 Apresoline PO 10 mg Q8HR [facility] Administration Insulin Human Regular 100 100 mls @ 1 mls/hr 08/07/18 20:00 08/08/18 10:08 units/ Sodium Chloride IV 16 units/hr TITR [facility] 16 mls/hr Titration Protocol 1 UNITS/HR Piperacillin Sod/Tazobactam Sod 2.25 gm in 50 mls @ 100 mls/hr 08/07/18 22:00 08/08/18 05:45 Zosyn/Ns 2.25 Gm/50ml IV 08/10/18 23:59 100 mls/hr Q8H [facility] Administration Potassium Chloride/Sodium Chloride 20 meq in 1,000 mls @ 150 mls/hr 08/08/18 06:00 08/08/18 06:12 Ns 0.45/Kcl 20meq IV 150 mls/hr DIRECT [facility] Administration Insulin Glargine 50 units 08/08/18 11:00 Lantus SUB-Q BID [facility] Insulin Human Lispro 0 unit 08/08/18 11:30 Humalog SUB-Q AC [facility] Protocol Insulin Human Lispro 20 unit 08/08/18 11:30 Humalog SUB-Q AC [facility] Insulin Human Regular 0 units 08/08/18 22:00 Humulin R SUB-Q QHS [facility] Protocol Metoprolol Tartrate 50 mg 08/07/18 22:00 08/07/18 23:13 Lopressor PO 50 mg BID [facility] Administration Sodium Chloride 10 ml 08/07/18 22:00 08/07/18 23:13 Sodium Chloride Flush Syringe 10 Ml IV 10 ml BID [facility] Administration Sodium Chloride 10 ml 08/07/18 19:02 Sodium Chloride Flush Syringe 10 Ml IV PRN PRN LINE FLUSH
[2018-08-08] MEDS ORDERED: LANTUS SUB-Q SCH (11:00)
[2018-08-08] MEDS ORDERED: HumaLOG SUB-Q ONE ×2 (11:30→14:19)
[2018-08-08 12:56] LABS: Calcium 6.5 mg/dL (8.4-10.2)
[2018-08-08 13:23] LABS: Hepatitis B Surface Antigen Non-Reactive (Negative); Hepatitis C Virus Antibody Non-Reactive (NonReactive)
--- NOTE | 2018-08-08 13:32 | Consultation ---
History of Present Illness Consult date: 08/08/18 Requesting physician: PHIL BURGESS Reason for consult: other (DKA< acute renal failure) History of present illness: 53 YO Male with DM, Malnutrition presents to ED for evaluation. Pt is confused/lethargic and unable to provide history. Pt history taken from EMS, and ED staff. As per staff the patient was found to be confused by his roommate today. EMS was notified, and upon arrival the patient was found to be in distress and transported to [facility] ED. Pt seen and evaluated in ED and found to have DKA with serum glucose of 1580, Acidosis, Encephalopathy, and Acute Renal Failure. No further history obtainable. Pt admitted to ICU and initiated on DKA protocol. Pulmonary team consulted in ED. Nephrology consulted in ED. No prior admissions for review. On admission WBC 14.9, Creatinine 3.1, potassium 8.1, NA 155, lacrtic Acid 2.80, Glucose 1020, Temperature 94.9, HR 106, BP 81/46. U/A was not consistent with a UTI, Urine Creatinine 177, Urine Total Protein 183. Blood cultures were drawn and show GNR Bacteremia,2 out of [address] shows no evidence of acute disease. I have been consulted fro critical care management. Patient was seen and examined. Vitals, labs, medications, chart reviewed. Past History Past Medical History: diabetes Past Surgical History: No surgical history, Other (UTO) Social history: single, other (lives with roommate). denies: smoking, alcohol abuse, prescription drug abuse Family history: no significant family history (UTO) Medications and Allergies Allergies Allergy/AdvReac Type Severity Reaction Status Date / Time No Known Allergies Allergy Verified 08/07/18 17:35 Home Medications Medication Instructions Recorded Confirmed Last Taken Type AtorvaSTATin [Lipitor] 40 mg PO QHS 08/07/18 08/07/18 Unknown History Clopidogrel [Plavix] 75 mg PO DAILY 08/07/18 08/07/18 Unknown History Ergocalciferol [Vitamin D2] 50,000 units PO QWEEK 08/07/18 08/07/18 Unknown History Furosemide [Lasix TAB] 40 mg PO QDAY 08/07/18 08/07/18 Unknown History Metoprolol Tartrate 50 mg PO BID 08/07/18 08/07/18 Unknown History amLODIPine [Norvasc] 10 mg PO DAILY 08/07/18 08/07/18 Unknown History cloNIDine [Catapres] 0.2 mg PO TID 08/07/18 08/07/18 Unknown History hydrALAZINE [Apresoline TAB] 10 mg PO Q8HR 08/07/18 08/07/18 Unknown History Active Meds: Active Medications Albuterol (Proventil) 2.5 mg IH Q3HRT PRN PRN Reason: Shortness Of Breath Amlodipine Besylate (Norvasc) 10 mg PO DAILY [facility] Atorvastatin Calcium (Lipitor) 40 mg PO QHS [facility] Last Admin: 08/07/18 23:12 Dose: 40 mg Documented by: Clonidine HCl (Catapres) 0.2 mg PO TID [facility] Last Admin: 08/08/18 08:15 Dose: Not Given Documented by: Clopidogrel Bisulfate (Plavix) 75 mg PO DAILY [facility] Dextrose (D50w (25gm) Syringe) 0 ml IV PRN PRN PRN Reason: Hypoglycemia Ergocalciferol (Vitamin D2) 50,000 unit PO QWEEK [facility] Heparin Sodium (Porcine) (Heparin) 5,000 unit SUB-Q Q8HR [facility] Hydralazine HCl (Apresoline) 10 mg PO Q8HR [facility] Last Admin: 08/08/18 06:29 Dose: 10 mg Documented by: Insulin Human Regular 100 (units/ Sodium Chloride) 100 mls @ 1 mls/hr IV TITR [facility]; Protocol Last Titration: 08/08/18 11:32 Dose: Infused Documented by: Piperacillin Sod/Tazobactam Sod (Zosyn/Ns 2.25 Gm/50ml) 2.25 gm in 50 mls @ 100 mls/hr IV Q8H [facility] Stop: 08/10/18 23:59 Last Admin: 08/08/18 05:45 Dose: 100 mls/hr Documented by: Potassium Chloride/Sodium Chloride (Ns 0.45/Kcl 20meq) 20 meq in 1,000 mls @ 150 mls/hr IV DIRECT [facility] Last Admin: 08/08/18 06:12 Dose: 150 mls/hr Documented by: Insulin Glargine (Lantus) 50 units SUB-Q BID [facility] Last Admin: 08/08/18 12:03 Dose: 50 units Documented by: Insulin Human Lispro (Humalog) 0 unit SUB-Q [facility]; Protocol Insulin Human Lispro (Humalog) 20 unit SUB-Q [facility] Insulin Human Regular ([facility]ulin R) [facility]; Protocol Metoprolol Tartrate (Lopressor) 50 mg PO BID [facility] Last Admin: 08/07/18 23:13 Dose: 50 mg Documented by: Sodium Chloride (Sodium Chloride Flush Syringe 10 Ml) 10 ml IV BID [facility] Last Admin: 08/07/18 23:13 Dose: 10 ml Documented by: Sodium Chloride (Sodium Chloride Flush Syringe 10 Ml) 10 ml IV PRN PRN PRN Reason: LINE FLUSH Review of Systems ROS unobtainable: due to mental status Physical Examination Vital signs: Vital Signs Pulse Resp BP Pulse Ox 106 H 31 H 81/46 100 08/07/18 17:30 08/07/18 17:30 08/07/18 17:30 08/07/18 17:30 Tachypnic, tachycardic Constitutional: Encephalopathy. Head, Ears, Nose: Normocephalic, atraumatic. External ears, nose normal Eyes: Conjunctivae/corneas clear. No icterus. No ptosis. Neck: Supple, no meningeal signs Oral: oral mucosa dry. dentition fair Cardiovascular: S1, S2 normal, Tachycardia Respiratory:Decreased AE bilaterally, No rhonchi, no wheeze, clear to auscultation bilaterally GI: Soft, non-tender; bowel sounds normal. No peritoneal signs Musculoskeletal: No pedal edema, no cyanosis. Skin: No rash or abscess. Hem/Lymphatic: No palpable cervical or supraclavicular nodes. No lymphangitis Psych: Encephalopathy Neurological: Encephalopathy Results - Laboratory Findings CBC and BMP: 08/09/18 11:06 08/09/18 04:34 ABG POC ABG pH 7.126 (7.35-7.45) L 08/07/18 18:25 POC ABG pO2 217 (80-105) H 08/07/18 18:25 POC ABG HCO3 3.4 (22-26 mml/L) 08/07/18 18:25 POC ABG Total CO2 < 5 (23-27mmol/L) 08/07/18 18:25 POC ABG O2 Sat 100 08/07/18 18:25 PT/INR, D-dimer PT 13.8 Sec. (12.2-14.9) 08/07/18 17:22 INR 1.00 (0.87-1.13) 08/07/18 17:22 Abnormal lab findings: Abnormal Labs 08/07/18 08/07/18 08/07/18 17:14 17:22 17:22 WBC 14.9 H Hgb 11.3 L MCV 103 H MCHC 27 L Seg Neuts % (Manual) 76.0 H Lymphocytes % (Manual) 12.0 L Monocytes % (Manual) 11.0 H Seg Neutrophils # Man 11.3 H Monocytes # (Manual) 1.6 H APTT POC ABG pH POC ABG pO2 VBG pH Sodium Potassium Chloride Carbon Dioxide BUN Creatinine Glucose POC Glucose > 500 H Hemoglobin A1c Lactic Acid 14.00 H* Calcium Phosphorus Magnesium Alkaline Phosphatase Troponin T Albumin 08/07/18 08/07/18 08/07/18 17:22 17:22 17:22 WBC Hgb MCV MCHC Seg Neuts % (Manual) Lymphocytes % (Manual) Monocytes % (Manual) Seg Neutrophils # Man Monocytes # (Manual) APTT 20.1 L POC ABG pH POC ABG pO2 VBG pH 7.012 L* Sodium 127 L Potassium 8.4 H* Chloride 73.9 L Carbon Dioxide 4 L* BUN 65 H Creatinine 4.5 H Glucose 1580 H* POC Glucose Hemoglobin A1c Lactic Acid Calcium Phosphorus Magnesium Alkaline Phosphatase 173 H Troponin T 0.104 H* Albumin 3.7 L 08/07/18 08/07/18 08/07/18 18:25 18:46 18:46 WBC Hgb MCV MCHC Seg Neuts % (Manual) Lymphocytes % (Manual) Monocytes % (Manual) Seg Neutrophils # Man Monocytes # (Manual) APTT POC ABG pH 7.126 L POC ABG pO2 217 H VBG pH Sodium Potassium Chloride Carbon Dioxide BUN Creatinine Glucose POC Glucose Hemoglobin A1c Lactic Acid 12.00 H* Calcium Phosphorus Magnesium Alkaline Phosphatase Troponin T 0.090 H Albumin 08/07/18 08/07/18 08/07/18 18:46 18:46 18:46 WBC Hgb MCV MCHC Seg Neuts % (Manual) Lymphocytes % (Manual) Monocytes % (Manual) Seg Neutrophils # Man Monocytes # (Manual) APTT POC ABG pH POC ABG pO2 VBG pH Sodium 131 L 133 L Potassium 8.0 H* 8.0 H* Chloride 77.7 L 80.5 L Carbon Dioxide 6 L* 6 L* BUN 66 H 67 H Creatinine 4.5 H 4.9 H Glucose 1619 H* 1619 H* POC Glucose Hemoglobin A1c Lactic Acid Calcium Phosphorus 12.40 H Magnesium 3.00 H Alkaline Phosphatase Troponin T Albumin 08/07/18 08/07/18 08/07/18 19:09 20:00 20:00 WBC Hgb MCV MCHC Seg Neuts % (Manual) Lymphocytes % (Manual) Monocytes % (Manual) Seg Neutrophils # Man Monocytes # (Manual) APTT POC ABG pH POC ABG pO2 VBG pH Sodium 129 L Potassium Chloride 76.7 L Carbon Dioxide BUN 69 H Creatinine 4.5 H Glucose POC Glucose Hemoglobin A1c 10.2 H Lactic Acid Calcium Phosphorus 12.20 H Magnesium 3.00 H Alkaline Phosphatase Troponin T Albumin 08/07/18 08/07/18 08/07/18 20:00 20:30 21:00 WBC Hgb MCV MCHC Seg Neuts % (Manual) Lymphocytes % (Manual) Monocytes % (Manual) Seg Neutrophils # Man Monocytes # (Manual) APTT POC ABG pH POC ABG pO2 VBG pH Sodium 133 L Potassium 6.1 H* D Chloride 86.5 L Carbon Dioxide 5 L* BUN 64 H Creatinine 4.3 H Glucose 1211 H* POC Glucose Hemoglobin A1c Lactic Acid 11.00 H* 7.60 H* Calcium Phosphorus Magnesium Alkaline Phosphatase Troponin T Albumin 08/07/18 08/07/18 08/07/18 22:47 22:47 22:47 WBC Hgb MCV MCHC Seg Neuts % (Manual) Lymphocytes % (Manual) Monocytes % (Manual) Seg Neutrophils # Man Monocytes # (Manual) APTT POC ABG pH POC ABG pO2 VBG pH Sodium Potassium Chloride 91.2 L Carbon Dioxide 11 L BUN 69 H Creatinine 4.6 H Glucose 1417 H* POC Glucose Hemoglobin A1c Lactic Acid 5.10 H* Calcium Phosphorus Magnesium Alkaline Phosphatase Troponin T 0.098 H Albumin 08/08/18 08/08/18 08/08/18 00:17 00:17 01:25 WBC Hgb MCV MCHC Seg Neuts % (Manual) Lymphocytes % (Manual) Monocytes % (Manual) Seg Neutrophils # Man Monocytes # (Manual) APTT POC ABG pH POC ABG pO2 VBG pH Sodium Potassium 3.3 L 3.5 L Chloride 93.3 L 95.6 L Carbon Dioxide 17 L 18 L BUN 66 H 65 H Creatinine 4.6 H 4.6 H Glucose 1376 H* 1231 H* POC Glucose Hemoglobin A1c Lactic Acid 3.90 H* Calcium 8.2 L Phosphorus Magnesium Alkaline Phosphatase Troponin T Albumin 08/08/18 08/08/18 08/08/18 01:25 02:34 03:11 WBC Hgb MCV MCHC Seg Neuts % (Manual) Lymphocytes % (Manual) Monocytes % (Manual) Seg Neutrophils # Man Monocytes # (Manual) APTT POC ABG pH POC ABG pO2 VBG pH Sodium Potassium Chloride Carbon Dioxide BUN 65 H 64 H Creatinine 4.6 H 4.4 H Glucose 1067 H* 1020 H* POC Glucose Hemoglobin A1c Lactic Acid 3.60 H* Calcium Phosphorus Magnesium Alkaline Phosphatase Troponin T Albumin 08/08/18 08/08/18 08/08/18 03:11 04:20 04:20 WBC Hgb MCV MCHC Seg Neuts % (Manual) Lymphocytes % (Manual) Monocytes % (Manual) Seg Neutrophils # Man Monocytes # (Manual) APTT POC ABG pH POC ABG pO2 VBG pH Sodium 146 H Potassium 3.5 L Chloride Carbon Dioxide BUN 63 H Creatinine 4.3 H Glucose 875 H* POC Glucose Hemoglobin A1c Lactic Acid 2.80 H* 2.70 H* Calcium Phosphorus Magnesium Alkaline Phosphatase Troponin T Albumin 08/08/18 08/08/18 08/08/18 05:10 05:10 06:19 WBC Hgb MCV MCHC Seg Neuts % (Manual) Lymphocytes % (Manual) Monocytes % (Manual) Seg Neutrophils # Man Monocytes # (Manual) APTT POC ABG pH POC ABG pO2 VBG pH 7.454 H Sodium 148 H 149 H Potassium 3.3 L 3.4 L Chloride Carbon Dioxide BUN 61 H 59 H Creatinine 4.4 H 4.3 H Glucose 785 H* 644 H* POC Glucose Hemoglobin A1c Lactic Acid Calcium Phosphorus Magnesium Alkaline Phosphatase Troponin T Albumin 08/08/18 08/08/18 08/08/18 06:19 08:14 08:14 WBC Hgb MCV MCHC Seg Neuts % (Manual) Lymphocytes % (Manual) Monocytes % (Manual) Seg Neutrophils # Man Monocytes # (Manual) APTT POC ABG pH POC ABG pO2 VBG pH Sodium 147 H Potassium 3.2 L Chloride 109.6 H Carbon Dioxide BUN 58 H Creatinine 4.2 H Glucose 423 H POC Glucose Hemoglobin A1c Lactic Acid 3.40 H* 3.30 H* Calcium 8.3 L Phosphorus Magnesium Alkaline Phosphatase Troponin T Albumin 08/08/18 08/08/18 08/08/18 09:23 09:23 11:32 WBC Hgb MCV MCHC Seg Neuts % (Manual) Lymphocytes % (Manual) Monocytes % (Manual) Seg Neutrophils # Man Monocytes # (Manual) APTT POC ABG pH POC ABG pO2 VBG pH Sodium 153 H Potassium 3.3 L Chloride 110.8 H Carbon Dioxide BUN 58 H Creatinine 4.3 H Glucose 302 H POC Glucose 247 H Hemoglobin A1c Lactic Acid 3.10 H* Calcium Phosphorus Magnesium Alkaline Phosphatase Troponin T Albumin 08/08/18 12:04 WBC Hgb MCV MCHC Seg Neuts % (Manual) Lymphocytes % (Manual) Monocytes % (Manual) Seg Neutrophils # Man Monocytes # (Manual) APTT POC ABG pH POC ABG pO2 VBG pH Sodium Potassium 8.1 H* D Chloride 108.3 H Carbon Dioxide BUN 46 H Creatinine 3.1 H Glucose 115 H POC Glucose Hemoglobin A1c Lactic Acid Calcium 6.5 L D Phosphorus Magnesium Alkaline Phosphatase Troponin T Albumin - Diagnostic Findings Chest x-ray: image reviewed (No acute infiltrates, Emphysema) Assessment and Plan Sepsis with organ dysfunction, SOFA >2 Gram neg bacteremia Severe metabolic acidosis Hyperglycemic hyperosmolar nonketotic state Hyponatremia Acute kidney injury due to vasomotor nephropathy Acute metabolic encephalopathy -Volume resuscitation -Antibiotics -Serial BMPs -Follow cultures, adjust antibiotic therapy based on REUBEN and culture results -IV insulin therapy per protocol -Place mroa catheter for strict intake and output in this patient with acute renal failure, encephalopathy and sepsis with organ dysfunction -Supplemental oxygen as indicated to keep O2 sats>88% -IV insulin therapy per protocol -Keep NPO for now -Avoid nephrotoxic agents, adjust all medications for CrCL -VTE prophylaxis -Vasopressor support as indicated for MAP<65 -Renal consult CONDITION: CRITICAL PROGNOSIS: GUARDED CODE STATUS: FULL CODE The high probability of a clinically significant, sudden or life threatening deterioration of the [endocrine, neuro, renal] system(s) required my full and direct attention, intervention and personal management. The aggregate critical care time was [35] minutes. This time is in addition to time spent performing reported procedures but includes the following: [x] Data Review and interpretation [x] Patient assessment and monitoring of vital signs [x] Documentation [x] Medication orders and management
[2018-08-08] MEDS: SODIUM CHLORIDE FLUSH SYRINGE 10 ML IV SCH ×2 (13:53→21:47)
[2018-08-08] MEDS ORDERED: PLAVIX ONE (14:03)
[2018-08-08] MEDS ORDERED: NORVASC ONE (14:03)
[2018-08-08] MEDS ORDERED: LOPRESSOR ONE (14:03)
[2018-08-08] MEDS: PLAVIX PO SCH (14:05)
[2018-08-08] MEDS: LOPRESSOR PO SCH ×2 (14:05→21:46)
[2018-08-08] MEDS: NORVASC PO SCH (14:05)
[2018-08-08] MEDS: HumaLOG SUB-Q SCH ×4 (14:24→17:28)
[2018-08-08] MEDS ORDERED: CALCIUM GLUCONATE 1,000 MG in NACL 0.9% 100 ML IV ONE (14:30)
[2018-08-08] MEDS: NACL 0.45% 1000 ML 1,000 ML IV SCH (15:15)
[2018-08-08] MEDS ORDERED: CATAPRES ONE (15:21)
[2018-08-08] MEDS ORDERED: HEPARIN ONE (15:21)
[2018-08-08] MEDS ORDERED: NACL 0.45% 1000 ML 1,000 ML IV ONE (15:21)
[2018-08-08] MEDS ORDERED: TYLENOL ONE (15:36)
[2018-08-08] MEDS: HEPARIN SUB-Q SCH ×3 (15:57→21:46)
[2018-08-08 16:14] LABS: Fractional Sodium Excretion 0.6
[2018-08-08] MEDS ORDERED: TYLENOL PO ONE (16:14)
[2018-08-08] MEDS ORDERED: MAXIPIME/NS 2 GM/100 ML 2 GM/100 ML BAG IV ONE (16:19)
[2018-08-08 16:24] LABS: Protein/Creatinine Ratio,Urine 1.03
--- NOTE | 2018-08-08 17:00 | Consultation ---
History of Present Illness - Reason for Consult Consult date: 08/08/18 GNR bacteremia Requesting physician: PHIL BURGESS - History of Present Illness This patient is a 53 year old male with a past medial history of DM and malnutrition, presents to the ED on 08/07/18 . EMS was called to the home and patient was found to be in distress. Upon evaluation in the ED, he was found to have DKA with serum glucose of 1580. acidosis, encephalopathy and acute renal failure. On admission WBC 14.9, Creatinine 3.1, potassium 8.1, NA 155, lacrtic A gretta 2.80, Glucose 1020, Temperature 94.9, HR 106, BP 81/46. U/A was not consistent with a UTI, Urine Creatinine 177, Urine Total Protein 183. Blood cultures were drawn and show GNR Bacteremia,2 out of 4 bottles.Chest xray shows Mildly hyperlucent lungs suggestive of underlying emphysema. Head CT shows no evidence of acute disease. History unobtainable due to metabolic encephalopathy. History obtained from chart review. Past History Past Medical History: diabetes Past Surgical History: No surgical history, Other (UTO) Social history: single, other (lives with roommate). denies: smoking, alcohol abuse, prescription drug abuse Family history: no significant family history (UTO) Medications and Allergies Allergies Allergy/AdvReac Type Severity Reaction Status Date / Time No Known Allergies Allergy Verified 08/07/18 17:35 Home Medications Medication Instructions Recorded Confirmed Last Taken Type AtorvaSTATin [Lipitor] 40 mg PO QHS 08/07/18 08/07/18 Unknown History Clopidogrel [Plavix] 75 mg PO DAILY 08/07/18 08/07/18 Unknown History Ergocalciferol [Vitamin D2] 50,000 units PO QWEEK 08/07/18 08/07/18 Unknown History Furosemide [Lasix TAB] 40 mg PO QDAY 08/07/18 08/07/18 Unknown History Metoprolol Tartrate 50 mg PO BID 08/07/18 08/07/18 Unknown History amLODIPine [Norvasc] 10 mg PO DAILY 08/07/18 08/07/18 Unknown History cloNIDine [Catapres] 0.2 mg PO TID 08/07/18 08/07/18 Unknown History hydrALAZINE [Apresoline TAB] 10 mg PO Q8HR 08/07/18 08/07/18 Unknown History Active Meds: Active Medications Albuterol (Proventil) 2.5 mg IH Q3HRT PRN PRN Reason: Shortness Of Breath Amlodipine Besylate (Norvasc) 10 mg PO DAILY [facility] Last Admin: 08/08/18 14:05 Dose: 10 mg Documented by: Atorvastatin Calcium (Lipitor) 40 mg PO QHS [facility] Last Admin: 08/07/18 23:12 Dose: 40 mg Documented by: Clonidine HCl (Catapres) 0.2 mg PO TID [facility] Last Admin: 08/08/18 15:59 Dose: 0.2 mg Documented by: Clopidogrel Bisulfate (Plavix) 75 mg PO DAILY [facility] Last Admin: 08/08/18 14:05 Dose: 75 mg Documented by: Dextrose (D50w (25gm) Syringe) 0 ml IV PRN PRN PRN Reason: Hypoglycemia Ergocalciferol (Vitamin D2) 50,000 unit PO QWEEK [facility] Heparin Sodium (Porcine) (Heparin) 5,000 unit SUB-Q Q8HR [facility] Last Admin: 08/08/18 15:59 Dose: 5,000 unit Documented by: Hydralazine HCl (Apresoline) 10 mg PO Q8HR [facility] Last Admin: 08/08/18 15:59 Dose: 10 mg Documented by: Sodium Chloride (Nacl 0.45% 1000 Ml) 1,000 mls @ 125 mls/hr IV DIRECT [facility] Last Admin: 08/08/18 15:15 Dose: 125 mls/hr Documented by: Cefepime HCl (Maxipime/Ns 2 Gm/100 Ml) 2 gm in 100 mls @ 200 mls/hr IV Q24HR [facility]; Protocol Insulin Glargine (Lantus) 50 units SUB-Q BID [facility] Last Admin: 08/08/18 12:03 Dose: 50 units Documented by: Insulin Human Lispro (Humalog) 0 unit SUB-Q [facility]; Protocol Last Admin: 08/08/18 14:50 Dose: Not Given Documented by: Insulin Human Lispro (Humalog) 20 unit SUB-Q [facility] Last Admin: 08/08/18 14:24 Dose: 20 unit Documented by: Insulin Human Regular (Humulin R) 0 units SUB-Q [facility]; Protocol Metoprolol Tartrate (Lopressor) 50 mg PO BID [facility] Last Admin: 08/08/18 14:05 Dose: 50 mg Documented by: Sodium Chloride (Sodium Chloride Flush Syringe 10 Ml) 10 ml IV BID [facility] Last Admin: 08/08/18 13:53 Dose: 10 ml Documented by: Sodium Chloride (Sodium Chloride Flush Syringe 10 Ml) 10 ml IV PRN PRN PRN Reason: LINE FLUSH Physical Examination - Physical Exam Narrative exam: Constitutional: Encephalopathy. Acute distress Head, Ears, Nose: Normocephalic, atraumatic. External ears, nose normal Eyes: Conjunctivae/corneas clear. No icterus. No ptosis. Neck: Supple, no meningeal signs Oral: oral mucosa dry. dentition fair Cardiovascular: S1, S2 normal. Respiratory: Good air entry, clear to auscultation bilaterally GI: Soft, non-tender; bowel sounds normal. No peritoneal signs Musculoskeletal: No pedal edema, no cyanosis. Skin: No rash or abscess. Hem/Lymphatic: No palpable cervical or supraclavicular nodes. No lymphangitis Psych: Encephalopathy Neurological: Encephalopathy - Constitutional Vitals: Vital Signs Temp Pulse Resp BP Pulse Ox 99 F 89 23 182/89 100 08/08/18 04:27 08/08/18 15:59 08/08/18 06:00 08/08/18 15:59 08/08/18 06:00 Temperature -Last 24 Hours Temperature 99 F Temperature 98 F Temperature 94.9 F Results - Labs CBC & Chem 7: 08/07/18 17:22 08/08/18 14:15 Labs: Abnormal lab results 08/07/18 08/07/18 08/07/18 Range/Units 17:14 17:22 17:22 WBC 14.9 H (4.5-11.0) K/mm3 Hgb 11.3 L (11.8-15.2) gm/dl MCV 103 H (84-94) fl MCHC 27 L (32-34) % Seg Neuts % (Manual) 76.0 H (40.0-70.0) % Lymphocytes % (Manual) 12.0 L (13.4-35.0) % Monocytes % (Manual) 11.0 H (0.0-7.3) % Seg Neutrophils # Man 11.3 H (1.8-7.7) K/mm3 Monocytes # (Manual) 1.6 H (0.0-0.8) K/mm3 APTT (24.2-36.6) Sec. POC ABG pH (7.35-7.45) POC ABG pO2 (80-105) VBG pH (7.320-7.420) Sodium (137-145) mmol/L Potassium (3.6-5.0) mmol/L Chloride (98-107) mmol/L Carbon Dioxide (22-30) mmol/L BUN (9-20) mg/dL Creatinine (0.8-1.5) mg/dL Glucose (75-100) mg/dL POC Glucose > 500 H (70-105) Hemoglobin A1c (4-6) % Lactic Acid 14.00 H* (0.7-2.0) mmol/L Calcium (8.4-10.2) mg/dL Phosphorus (2.5-4.5) mg/dL Magnesium (1.7-2.3) mg/dL Alkaline Phosphatase (35-129) units/L Troponin T (0.00-0.029) ng/mL Albumin (3.9-5) g/dL Urine Creatinine (0.1-20.0) mg/dL Urine Total Protein (5-11.8) mg/dL 08/07/18 08/07/18 08/07/18 Range/Units 17:22 17:22 17:22 WBC (4.5-11.0) K/mm3 Hgb (11.8-15.2) gm/dl MCV (84-94) fl MCHC (32-34) % Seg Neuts % (Manual) (40.0-70.0) % Lymphocytes % (Manual) (13.4-35.0) % Monocytes % (Manual) (0.0-7.3) % Seg Neutrophils # Man (1.8-7.7) K/mm3 Monocytes # (Manual) (0.0-0.8) K/mm3 APTT 20.1 L (24.2-36.6) Sec. POC ABG pH (7.35-7.45) POC ABG pO2 (80-105) VBG pH 7.012 L* (7.320-7.420) Sodium 127 L (137-145) mmol/L Potassium 8.4 H* (3.6-5.0) mmol/L Chloride 73.9 L (98-107) mmol/L Carbon Dioxide 4 L* (22-30) mmol/L BUN 65 H (9-20) mg/dL Creatinine 4.5 H (0.8-1.5) mg/dL Glucose 1580 H* (75-100) mg/dL POC Glucose (70-105) Hemoglobin A1c (4-6) % Lactic Acid (0.7-2.0) mmol/L Calcium (8.4-10.2) mg/dL Phosphorus (2.5-4.5) mg/dL Magnesium (1.7-2.3) mg/dL Alkaline Phosphatase 173 H (35-129) units/L Troponin T 0.104 H* (0.00-0.029) ng/mL Albumin 3.7 L (3.9-5) g/dL Urine Creatinine (0.1-20.0) mg/dL Urine Total Protein (5-11.8) mg/dL 08/07/18 08/07/18 08/07/18 Range/Units 18:25 18:46 18:46 WBC (4.5-11.0) K/mm3 Hgb (11.8-15.2) gm/dl MCV (84-94) fl MCHC (32-34) % Seg Neuts % (Manual) (40.0-70.0) % Lymphocytes % (Manual) (13.4-35.0) % Monocytes % (Manual) (0.0-7.3) % Seg Neutrophils # Man (1.8-7.7) K/mm3 Monocytes # (Manual) (0.0-0.8) K/mm3 APTT (24.2-36.6) Sec. POC ABG pH 7.126 L (7.35-7.45) POC ABG pO2 217 H (80-105) VBG pH (7.320-7.420) Sodium (137-145) mmol/L Potassium (3.6-5.0) mmol/L Chloride (98-107) mmol/L Carbon Dioxide (22-30) mmol/L BUN (9-20) mg/dL Creatinine (0.8-1.5) mg/dL Glucose (75-100) mg/dL POC Glucose (70-105) Hemoglobin A1c (4-6) % Lactic Acid 12.00 H* (0.7-2.0) mmol/L Calcium (8.4-10.2) mg/dL Phosphorus (2.5-4.5) mg/dL Magnesium (1.7-2.3) mg/dL Alkaline Phosphatase (35-129) units/L Troponin T 0.090 H (0.00-0.029) ng/mL Albumin (3.9-5) g/dL Urine Creatinine (0.1-20.0) mg/dL Urine Total Protein (5-11.8) mg/dL 08/07/18 08/07/18 08/07/18 Range/Units 18:46 18:46 18:46 WBC (4.5-11.0) K/mm3 Hgb (11.8-15.2) gm/dl MCV (84-94) fl MCHC (32-34) % Seg Neuts % (Manual) (40.0-70.0) % Lymphocytes % (Manual) (13.4-35.0) % Monocytes % (Manual) (0.0-7.3) % Seg Neutrophils # Man (1.8-7.7) K/mm3 Monocytes # (Manual) (0.0-0.8) K/mm3 APTT (24.2-36.6) Sec. POC ABG pH (7.35-7.45) POC ABG pO2 (80-105) VBG pH (7.320-7.420) Sodium 131 L 133 L (137-145) mmol/L Potassium 8.0 H* 8.0 H* (3.6-5.0) mmol/L Chloride 77.7 L 80.5 L (98-107) mmol/L Carbon Dioxide 6 L* 6 L* (22-30) mmol/L BUN 66 H 67 H (9-20) mg/dL Creatinine 4.5 H 4.9 H (0.8-1.5) mg/dL Glucose 1619 H* 1619 H* (75-100) mg/dL POC Glucose (70-105) Hemoglobin A1c (4-6) % Lactic Acid (0.7-2.0) mmol/L Calcium (8.4-10.2) mg/dL Phosphorus 12.40 H (2.5-4.5) mg/dL Magnesium 3.00 H (1.7-2.3) mg/dL Alkaline Phosphatase (35-129) units/L Troponin T (0.00-0.029) ng/mL Albumin (3.9-5) g/dL Urine Creatinine (0.1-20.0) mg/dL Urine Total Protein (5-11.8) mg/dL 08/07/18 08/07/18 08/07/18 Range/Units 19:09 20:00 20:00 WBC (4.5-11.0) K/mm3 Hgb (11.8-15.2) gm/dl MCV (84-94) fl MCHC (32-34) % Seg Neuts % (Manual) (40.0-70.0) % Lymphocytes % (Manual) (13.4-35.0) % Monocytes % (Manual) (0.0-7.3) % Seg Neutrophils # Man (1.8-7.7) K/mm3 Monocytes # (Manual) (0.0-0.8) K/mm3 APTT (24.2-36.6) Sec. POC ABG pH (7.35-7.45) POC ABG pO2 (80-105) VBG pH (7.320-7.420) Sodium 129 L (137-145) mmol/L Potassium (3.6-5.0) mmol/L Chloride 76.7 L (98-107) mmol/L Carbon Dioxide (22-30) mmol/L BUN 69 H (9-20) mg/dL Creatinine 4.5 H (0.8-1.5) mg/dL Glucose (75-100) mg/dL POC Glucose (70-105) Hemoglobin A1c 10.2 H (4-6) % Lactic Acid (0.7-2.0) mmol/L Calcium (8.4-10.2) mg/dL Phosphorus 12.20 H (2.5-4.5) mg/dL Magnesium 3.00 H (1.7-2.3) mg/dL Alkaline Phosphatase (35-129) units/L Troponin T (0.00-0.029) ng/mL Albumin (3.9-5) g/dL Urine Creatinine (0.1-20.0) mg/dL Urine Total Protein (5-11.8) mg/dL 08/07/18 08/07/18 08/07/18 Range/Units 20:00 20:30 21:00 WBC (4.5-11.0) K/mm3 Hgb (11.8-15.2) gm/dl MCV (84-94) fl MCHC (32-34) % Seg Neuts % (Manual) (40.0-70.0) % Lymphocytes % (Manual) (13.4-35.0) % Monocytes % (Manual) (0.0-7.3) % Seg Neutrophils # Man (1.8-7.7) K/mm3 Monocytes # (Manual) (0.0-0.8) K/mm3 APTT (24.2-36.6) Sec. POC ABG pH (7.35-7.45) POC ABG pO2 (80-105) VBG pH (7.320-7.420) Sodium 133 L (137-145) mmol/L Potassium 6.1 H* D (3.6-5.0) mmol/L Chloride 86.5 L (98-107) mmol/L Carbon Dioxide 5 L* (22-30) mmol/L BUN 64 H (9-20) mg/dL Creatinine 4.3 H (0.8-1.5) mg/dL Glucose 1211 H* (75-100) mg/dL POC Glucose (70-105) Hemoglobin A1c (4-6) % Lactic Acid 11.00 H* 7.60 H* (0.7-2.0) mmol/L Calcium (8.4-10.2) mg/dL Phosphorus (2.5-4.5) mg/dL Magnesium (1.7-2.3) mg/dL Alkaline Phosphatase (35-129) units/L Troponin T (0.00-0.029) ng/mL Albumin (3.9-5) g/dL Urine Creatinine (0.1-20.0) mg/dL Urine Total Protein (5-11.8) mg/dL 08/07/18 08/07/18 08/07/18 Range/Units 22:47 22:47 22:47 WBC (4.5-11.0) K/mm3 Hgb (11.8-15.2) gm/dl MCV (84-94) fl MCHC (32-34) % Seg Neuts % (Manual) (40.0-70.0) % Lymphocytes % (Manual) (13.4-35.0) % Monocytes % (Manual) (0.0-7.3) % Seg Neutrophils # Man (1.8-7.7) K/mm3 Monocytes # (Manual) (0.0-0.8) K/mm3 APTT (24.2-36.6) Sec. POC ABG pH (7.35-7.45) POC ABG pO2 (80-105) VBG pH (7.320-7.420) Sodium (137-145) mmol/L Potassium (3.6-5.0) mmol/L Chloride 91.2 L (98-107) mmol/L Carbon Dioxide 11 L (22-30) mmol/L BUN 69 H (9-20) mg/dL Creatinine 4.6 H (0.8-1.5) mg/dL Glucose 1417 H* (75-100) mg/dL POC Glucose (70-105) Hemoglobin A1c (4-6) % Lactic Acid 5.10 H* (0.7-2.0) mmol/L Calcium (8.4-10.2) mg/dL Phosphorus (2.5-4.5) mg/dL Magnesium (1.7-2.3) mg/dL Alkaline Phosphatase (35-129) units/L Troponin T 0.098 H (0.00-0.029) ng/mL Albumin (3.9-5) g/dL Urine Creatinine (0.1-20.0) mg/dL Urine Total Protein (5-11.8) mg/dL 08/08/18 08/08/18 08/08/18 Range/Units 00:17 00:17 01:25 WBC (4.5-11.0) K/mm3 Hgb (11.8-15.2) gm/dl MCV (84-94) fl MCHC (32-34) % Seg Neuts % (Manual) (40.0-70.0) % Lymphocytes % (Manual) (13.4-35.0) % Monocytes % (Manual) (0.0-7.3) % Seg Neutrophils # Man (1.8-7.7) K/mm3 Monocytes # (Manual) (0.0-0.8) K/mm3 APTT (24.2-36.6) Sec. POC ABG pH (7.35-7.45) POC ABG pO2 (80-105) VBG pH (7.320-7.420) Sodium (137-145) mmol/L Potassium 3.3 L 3.5 L (3.6-5.0) mmol/L Chloride 93.3 L 95.6 L (98-107) mmol/L Carbon Dioxide 17 L 18 L (22-30) mmol/L BUN 66 H 65 H (9-20) mg/dL Creatinine 4.6 H 4.6 H (0.8-1.5) mg/dL Glucose 1376 H* 1231 H* (75-100) mg/dL POC Glucose (70-105) Hemoglobin A1c (4-6) % Lactic Acid 3.90 H* (0.7-2.0) mmol/L Calcium 8.2 L (8.4-10.2) mg/dL Phosphorus (2.5-4.5) mg/dL Magnesium (1.7-2.3) mg/dL Alkaline Phosphatase (35-129) units/L Troponin T (0.00-0.029) ng/mL Albumin (3.9-5) g/dL Urine Creatinine (0.1-20.0) mg/dL Urine Total Protein (5-11.8) mg/dL 08/08/18 08/08/18 08/08/18 Range/Units 01:25 02:34 03:11 WBC (4.5-11.0) K/mm3 Hgb (11.8-15.2) gm/dl MCV (84-94) fl MCHC (32-34) % Seg Neuts % (Manual) (40.0-70.0) % Lymphocytes % (Manual) (13.4-35.0) % Monocytes % (Manual) (0.0-7.3) % Seg Neutrophils # Man (1.8-7.7) K/mm3 Monocytes # (Manual) (0.0-0.8) K/mm3 APTT (24.2-36.6) Sec. POC ABG pH (7.35-7.45) POC ABG pO2 (80-105) VBG pH (7.320-7.420) Sodium (137-145) mmol/L Potassium (3.6-5.0) mmol/L Chloride (98-107) mmol/L Carbon Dioxide (22-30) mmol/L BUN 65 H 64 H (9-20) mg/dL Creatinine 4.6 H 4.4 H (0.8-1.5) mg/dL Glucose 1067 H* 1020 H* (75-100) mg/dL POC Glucose (70-105) Hemoglobin A1c (4-6) % Lactic Acid 3.60 H* (0.7-2.0) mmol/L Calcium (8.4-10.2) mg/dL Phosphorus (2.5-4.5) mg/dL Magnesium (1.7-2.3) mg/dL Alkaline Phosphatase (35-129) units/L Troponin T (0.00-0.029) ng/mL Albumin (3.9-5) g/dL Urine Creatinine (0.1-20.0) mg/dL Urine Total Protein (5-11.8) mg/dL 08/08/18 08/08/18 08/08/18 Range/Units 03:11 04:20 04:20 WBC (4.5-11.0) K/mm3 Hgb (11.8-15.2) gm/dl MCV (84-94) fl MCHC (32-34) % Seg Neuts % (Manual) (40.0-70.0) % Lymphocytes % (Manual) (13.4-35.0) % Monocytes % (Manual) (0.0-7.3) % Seg Neutrophils # Man (1.8-7.7) K/mm3 Monocytes # (Manual) (0.0-0.8) K/mm3 APTT (24.2-36.6) Sec. POC ABG pH (7.35-7.45) POC ABG pO2 (80-105) VBG pH (7.320-7.420) Sodium 146 H (137-145) mmol/L Potassium 3.5 L (3.6-5.0) mmol/L Chloride (98-107) mmol/L Carbon Dioxide (22-30) mmol/L BUN 63 H (9-20) mg/dL Creatinine 4.3 H (0.8-1.5) mg/dL Glucose 875 H* (75-100) mg/dL POC Glucose (70-105) Hemoglobin A1c (4-6) % Lactic Acid 2.80 H* 2.70 H* (0.7-2.0) mmol/L Calcium (8.4-10.2) mg/dL Phosphorus (2.5-4.5) mg/dL Magnesium (1.7-2.3) mg/dL Alkaline Phosphatase (35-129) units/L Troponin T (0.00-0.029) ng/mL Albumin (3.9-5) g/dL Urine Creatinine (0.1-20.0) mg/dL Urine Total Protein (5-11.8) mg/dL 08/08/18 08/08/18 08/08/18 Range/Units 05:10 05:10 06:19 WBC (4.5-11.0) K/mm3 Hgb (11.8-15.2) gm/dl MCV (84-94) fl MCHC (32-34) % Seg Neuts % (Manual) (40.0-70.0) % Lymphocytes % (Manual) (13.4-35.0) % Monocytes % (Manual) (0.0-7.3) % Seg Neutrophils # Man (1.8-7.7) K/mm3 Monocytes # (Manual) (0.0-0.8) K/mm3 APTT (24.2-36.6) Sec. POC ABG pH (7.35-7.45) POC ABG pO2 (80-105) VBG pH 7.454 H (7.320-7.420) Sodium 148 H 149 H (137-145) mmol/L Potassium 3.3 L 3.4 L (3.6-5.0) mmol/L Chloride (98-107) mmol/L Carbon Dioxide (22-30) mmol/L BUN 61 H 59 H (9-20) mg/dL Creatinine 4.4 H 4.3 H (0.8-1.5) mg/dL Glucose 785 H* 644 H* (75-100) mg/dL POC Glucose (70-105) Hemoglobin A1c (4-6) % Lactic Acid (0.7-2.0) mmol/L Calcium (8.4-10.2) mg/dL Phosphorus (2.5-4.5) mg/dL Magnesium (1.7-2.3) mg/dL Alkaline Phosphatase (35-129) units/L Troponin T (0.00-0.029) ng/mL Albumin (3.9-5) g/dL Urine Creatinine (0.1-20.0) mg/dL Urine Total Protein (5-11.8) mg/dL 08/08/18 08/08/18 08/08/18 Range/Units 06:19 08:14 08:14 WBC (4.5-11.0) K/mm3 Hgb (11.8-15.2) gm/dl MCV (84-94) fl MCHC (32-34) % Seg Neuts % (Manual) (40.0-70.0) % Lymphocytes % (Manual) (13.4-35.0) % Monocytes % (Manual) (0.0-7.3) % Seg Neutrophils # Man (1.8-7.7) K/mm3 Monocytes # (Manual) (0.0-0.8) K/mm3 APTT (24.2-36.6) Sec. POC ABG pH (7.35-7.45) POC ABG pO2 (80-105) VBG pH (7.320-7.420) Sodium 147 H (137-145) mmol/L Potassium 3.2 L (3.6-5.0) mmol/L Chloride 109.6 H (98-107) mmol/L Carbon Dioxide (22-30) mmol/L BUN 58 H (9-20) mg/dL Creatinine 4.2 H (0.8-1.5) mg/dL Glucose 423 H (75-100) mg/dL POC Glucose (70-105) Hemoglobin A1c (4-6) % Lactic Acid 3.40 H* 3.30 H* (0.7-2.0) mmol/L Calcium 8.3 L (8.4-10.2) mg/dL Phosphorus (2.5-4.5) mg/dL Magnesium (1.7-2.3) mg/dL Alkaline Phosphatase (35-129) units/L Troponin T (0.00-0.029) ng/mL Albumin (3.9-5) g/dL Urine Creatinine (0.1-20.0) mg/dL Urine Total Protein (5-11.8) mg/dL 08/08/18 08/08/18 08/08/18 Range/Units 09:23 09:23 11:32 WBC (4.5-11.0) K/mm3 Hgb (11.8-15.2) gm/dl MCV (84-94) fl MCHC (32-34) % Seg Neuts % (Manual) (40.0-70.0) % Lymphocytes % (Manual) (13.4-35.0) % Monocytes % (Manual) (0.0-7.3) % Seg Neutrophils # Man (1.8-7.7) K/mm3 Monocytes # (Manual) (0.0-0.8) K/mm3 APTT (24.2-36.6) Sec. POC ABG pH (7.35-7.45) POC ABG pO2 (80-105) VBG pH (7.320-7.420) Sodium 153 H (137-145) mmol/L Potassium 3.3 L (3.6-5.0) mmol/L Chloride 110.8 H (98-107) mmol/L Carbon Dioxide (22-30) mmol/L BUN 58 H (9-20) mg/dL Creatinine 4.3 H (0.8-1.5) mg/dL Glucose 302 H (75-100) mg/dL POC Glucose 247 H (70-105) Hemoglobin A1c (4-6) % Lactic Acid 3.10 H* (0.7-2.0) mmol/L Calcium (8.4-10.2) mg/dL Phosphorus (2.5-4.5) mg/dL Magnesium (1.7-2.3) mg/dL Alkaline Phosphatase (35-129) units/L Troponin T (0.00-0.029) ng/mL Albumin (3.9-5) g/dL Urine Creatinine (0.1-20.0) mg/dL Urine Total Protein (5-11.8) mg/dL 08/08/18 08/08/18 08/08/18 Range/Units 12:04 13:57 14:15 WBC (4.5-11.0) K/mm3 Hgb (11.8-15.2) gm/dl MCV (84-94) fl MCHC (32-34) % Seg Neuts % (Manual) (40.0-70.0) % Lymphocytes % (Manual) (13.4-35.0) % Monocytes % (Manual) (0.0-7.3) % Seg Neutrophils # Man (1.8-7.7) K/mm3 Monocytes # (Manual) (0.0-0.8) K/mm3 APTT (24.2-36.6) Sec. POC ABG pH (7.35-7.45) POC ABG pO2 (80-105) VBG pH (7.320-7.420) Sodium 155 H D (137-145) mmol/L Potassium 8.1 H* D (3.6-5.0) mmol/L Chloride 108.3 H (98-107) mmol/L Carbon Dioxide (22-30) mmol/L BUN 46 H (9-20) mg/dL Creatinine 3.1 H 4.2 H (0.8-1.5) mg/dL Glucose 115 H (75-100) mg/dL POC Glucose 200 H (70-105) Hemoglobin A1c (4-6) % Lactic Acid (0.7-2.0) mmol/L Calcium 6.5 L D (8.4-10.2) mg/dL Phosphorus (2.5-4.5) mg/dL Magnesium (1.7-2.3) mg/dL Alkaline Phosphatase (35-129) units/L Troponin T (0.00-0.029) ng/mL Albumin (3.9-5) g/dL Urine Creatinine (0.1-20.0) mg/dL Urine Total Protein (5-11.8) mg/dL 08/08/18 Range/Units 15:26 WBC (4.5-11.0) K/mm3 Hgb (11.8-15.2) gm/dl MCV (84-94) fl MCHC (32-34) % Seg Neuts % (Manual) (40.0-70.0) % Lymphocytes % (Manual) (13.4-35.0) % Monocytes % (Manual) (0.0-7.3) % Seg Neutrophils # Man (1.8-7.7) K/mm3 Monocytes # (Manual) (0.0-0.8) K/mm3 APTT (24.2-36.6) Sec. POC ABG pH (7.35-7.45) POC ABG pO2 (80-105) VBG pH (7.320-7.420) Sodium (137-145) mmol/L Potassium (3.6-5.0) mmol/L Chloride (98-107) mmol/L Carbon Dioxide (22-30) mmol/L BUN (9-20) mg/dL Creatinine (0.8-1.5) mg/dL Glucose (75-100) mg/dL POC Glucose (70-105) Hemoglobin A1c (4-6) % Lactic Acid (0.7-2.0) mmol/L Calcium (8.4-10.2) mg/dL Phosphorus (2.5-4.5) mg/dL Magnesium (1.7-2.3) mg/dL Alkaline Phosphatase (35-129) units/L Troponin T (0.00-0.029) ng/mL Albumin (3.9-5) g/dL Urine Creatinine 177.0 H (0.1-20.0) mg/dL Urine Total Protein 183 H (5-11.8) mg/dL - Imaging and Cardiology Chest x-ray: report reviewed, image reviewed (Mildly hyperlucent lungs suggestive of underlying emphysema) CT Scan - head: report reviewed (No evidence of acute disease. ) Assessment and Plan Cultures 08/07/2018 Blood: GNR , 2 out of 4 bottles A/P: This patient is a 53 year old male with a past medical history of DM and malnutrion, presents to the ED on 08/07/18 . EMS was called to the home and patient was found to be in distress. Upon evaluation in the ED, he was found to have DKA with serum glucose of 1580. acidosis, encephalopathy and acute renal failure. Admitted with: 1. SIRS: present on admission, secondary to diabetic ketoacidosis and metabolic acidosis, Blood cultures grew GNR bacteremia. No evidence of pneumonia or UTI.. Currently being treated with Cefepime. 2. Gram Negative Augustin Bacteremia: 2 out of 4 bottles. Source not clear. Will order CT of abdomen and pelvis once renal function improves. 3. Acute Encephalopathy: metabolic secondary to DKA. 4. Acute Kidney Injury: antibiotics renally dosed - Nephrology following 5. DM - uncontrolled Plan: -f/u blood cultures -Continue Cefepime 2gms IV q 24 -Will order CT of abdomen and Pelvis once renal function improves [facility] M: [phone] O:[phone] -
[2018-08-08] MEDS: MAXIPIME/NS 2 GM/100 ML 2 GM/100 ML BAG IV SCH (17:27)
[2018-08-08] MEDS ORDERED: APRESOLINE IV PRN (18:44)
[2018-08-08 19:44] LABS: Calcium 8.6 mg/dL (8.4-10.2)
[2018-08-08 20:23] LABS: Calcium 8.7 mg/dL (8.4-10.2)
[2018-08-08] MEDS: PROCARDIA XL PO SCH (21:47)
[2018-08-08] MEDS ORDERED: HumuLIN R SUB-Q SCH (22:00)
[2018-08-08] MEDS: LANTUS SUB-Q SCH (23:08)
[2018-08-09 05:40] LABS: Calcium 8.2 mg/dL (8.4-10.2)
[2018-08-09] MEDS: APRESOLINE PO SCH ×2 (05:46→13:09)
[2018-08-09] MEDS: NACL 0.45% 1000 ML 1,000 ML IV SCH (05:48)
[2018-08-09] MEDS: HEPARIN SUB-Q SCH ×2 (05:49→13:10)
[2018-08-09] MEDS: CATAPRES PO SCH ×2 (08:34→13:10)
[2018-08-09] MEDS: HumaLOG SUB-Q SCH ×3 (08:36→17:14)
[2018-08-09] MEDS: SODIUM CHLORIDE FLUSH SYRINGE 10 ML IV SCH (10:30)
[2018-08-09] MEDS: NORVASC PO SCH (10:40)
[2018-08-09] MEDS: LANTUS SUB-Q SCH (10:41)
[2018-08-09] MEDS: LOPRESSOR PO SCH (10:42)
[2018-08-09] MEDS: MAXIPIME/NS 2 GM/100 ML 2 GM/100 ML BAG IV SCH (10:43)
[2018-08-09] MEDS: PLAVIX PO SCH (10:43)
[2018-08-09] MEDS: PROCARDIA XL PO SCH (10:43)
--- NOTE | 2018-08-09 10:56 | Progress Note ---
Assessment and Plan Cultures 08/07/2018 Blood: GNR , 2 out of 4 bottles A/P: This patient is a 53 year old male with a past medical history of DM and malnutrion, presents to the ED on 08/07/18 . EMS was called to the home and phuong becerra was found to be in distress. Upon evaluation in the ED, he was found to have DKA with serum glucose of 1580. acidosis, encephalopathy and acute renal failure. Admitted with: 1. SIRS: present on admission, secondary to diabetic ketoacidosis and metabolic acidosis, Blood cultures grew GNR bacteremia. No evidence of pneumonia or UTI.. Currently being treated with Cefepime. 2. Gram Negative Augustin Bacteremia: 2 out of 4 bottles. Source not clear. Abdominal ultrasound ordered 3. Acute Encephalopathy: Improved. metabolic secondary to DKA. 4. Acute Kidney Injury: antibiotics renally dosed - Nephrology following 5. DM - uncontrolled Plan: -f/u blood cultures -Continue Cefepime 2gms IV q 24, D2 -Abdominal ultrasound ordered Dr. Valentino will be equipment operation instructor this weekend, . Please call for questions Quiana Lynne NP [facility] M: [id number] O:[phone] - Subjective Date of service: 08/09/18 Interval history: Patient seen and examined. Reports no abdominal pain or SOB. no fevers. Objective - Exam Narrative Exam: Constitutional: Awake. Alert. Conversant. no acute distress Head, Ears, Nose: Normocephalic, atraumatic. External ears, nose normal Eyes: Conjunctivae/corneas clear. No icterus. No ptosis. Neck: Supple, no meningeal signs Oral: oral mucosa dry. dentition good Cardiovascular: S1, S2 normal. Respiratory: Good air entry, clear to auscultation bilaterally GI: Soft, non-tender; bowel sounds normal. No peritoneal signs Musculoskeletal: No pedal edema, no cyanosis. Skin: No rash or abscess. Hem/Lymphatic: No palpable cervical or supraclavicular nodes. No lymphangitis Psych: mood: good. Neurological: Alert. Awake. oriented - Constitutional Vitals: Vital Signs Temp Pulse Resp BP Pulse Ox 98.0 F 87 24 118/71 99 08/09/18 04:44 08/09/18 10:42 08/09/18 04:44 08/09/18 10:42 08/09/18 04:44 Temperature -Last 24 Hours Temperature 98.0 F Temperature 98.0 F Temperature 98.2 F Temperature 100.9 F Temperature 99.0 F - Labs CBC & Chem 7: 08/09/18 11:06 08/09/18 04:34 Labs: Abnormal lab results 08/08/18 08/08/18 08/08/18 Range/Units 11:32 12:04 13:57 Sodium (137-145) mmol/L Potassium 8.1 H* D (3.6-5.0) mmol/L Chloride 108.3 H (98-107) mmol/L Carbon Dioxide (22-30) mmol/L BUN 46 H (9-20) mg/dL Creatinine 3.1 H (0.8-1.5) mg/dL Glucose 115 H (75-100) mg/dL POC Glucose 247 H 200 H (70-105) Calcium 6.5 L D (8.4-10.2) mg/dL Urine Creatinine (0.1-20.0) mg/dL Urine Total Protein (5-11.8) mg/dL 08/08/18 08/08/18 08/08/18 Range/Units 14:15 15:26 19:03 Sodium 155 H D (137-145) mmol/L Potassium (3.6-5.0) mmol/L Chloride (98-107) mmol/L Carbon Dioxide (22-30) mmol/L BUN (9-20) mg/dL Creatinine 4.2 H (0.8-1.5) mg/dL Glucose (75-100) mg/dL POC Glucose 130 H (70-105) Calcium (8.4-10.2) mg/dL Urine Creatinine 177.0 H (0.1-20.0) mg/dL Urine Total Protein 183 H (5-11.8) mg/dL 08/08/18 08/08/18 08/08/18 Range/Units 19:12 19:12 20:45 Sodium 155 H 154 H (137-145) mmol/L Potassium (3.6-5.0) mmol/L Chloride 111.3 H 111.0 H (98-107) mmol/L Carbon Dioxide 31 H D (22-30) mmol/L BUN 57 H 56 H (9-20) mg/dL Creatinine 4.1 H 4.0 H (0.8-1.5) mg/dL Glucose 108 H (75-100) mg/dL POC Glucose 115 H (70-105) Calcium (8.4-10.2) mg/dL Urine Creatinine (0.1-20.0) mg/dL Urine Total Protein (5-11.8) mg/dL 08/09/18 08/09/18 08/09/18 Range/Units 03:25 04:34 07:33 Sodium 153 H (137-145) mmol/L Potassium (3.6-5.0) mmol/L Chloride 113.1 H (98-107) mmol/L Carbon Dioxide (22-30) mmol/L BUN 57 H (9-20) mg/dL Creatinine 3.9 H (0.8-1.5) mg/dL Glucose 229 H (75-100) mg/dL POC Glucose 204 H 301 H (70-105) Calcium 8.2 L (8.4-10.2) mg/dL Urine Creatinine (0.1-20.0) mg/dL Urine Total Protein (5-11.8) mg/dL
[2018-08-09 11:32] LABS: Basophils % (Auto) 0.2 % (0.0-1.8); Eosinophils # (Auto) 0.1 K/mm3 (0.0-0.4); Eosinophils % (Auto) 0.3 % (0.0-4.3); Hematocrit 30.6 % (35.5-45.6); Hemoglobin 10.3 gm/dl (11.8-15.2); Lymphocytes # (Auto) 2.1 K/mm3 (1.2-5.4); Lymphocytes % (Auto) 11.4 % (13.4-35.0); Mean Corpuscular HGB Conc 34 % (32-34); Mean Corpuscular Volume 82 fl (84-94); Monocytes # (Auto) 1.1 K/mm3 (0.0-0.8); Monocytes % (Auto) 5.8 % (0.0-7.3); Platelet Count 201 K/mm3 (140-440); Red Blood Count 3.73 M/mm3 (3.65-5.03); Red Cell Distribution Width 12.1 % (13.2-15.2)
--- NOTE | 2018-08-09 13:47 | Progress Note ---
Assessment and Plan Sepsis with organ dysfunction, SOFA >2 Gram neg bacteremia Severe metabolic acidosis Hyperglycemic hyperosmolar nonketotic state Hyponatremia Acute kidney injury due to vasomotor nephropathy Acute metabolic encephalopathy -Volume resuscitation -Antibiotics -Serial BMPs -Follow cultures, adjust antibiotic therapy based on REUBEN and culture results -IV insulin therapy per protocol -Discontinue mora but continue strict intake and output monitoring -Supplemental oxygen as indicated to keep O2 sats>88% -IV insulin therapy per protocol -Steady carb diet -Avoid nephrotoxic agents, adjust all medications for CrCL -VTE prophylaxis -Continue all current care Transfer to [facility] CONDITION: FAIR PROGNOSIS: GUARDED CODE STATUS: FULL CODE Subjective Date of service: 08/09/18 Interval history: Follow up: Severe sepsis, DKA, Acute renal failure Patient seen and examined. Vitals, labs, medications, chart and imaging reviewed. No acute overnight events noted. Off insulin infusion, subcutaneous insulin initiated. More awake, aler, denies any chest pain, no abdominal pain, no fevers or chills Per hospitalist, discussions on going re transfer to the [facility] location Objective - Exam Narrative Exam: General.: toxic appearance, lethargic HEENT: Moist mucous membranes, extraocular muscles intact, Neck: supple, no thyromegaly, no adenopathy Cardiac: S1-S2 heard,RRR Lungs: clear to auscultation bilaterally, dimished AE bilaterally Abdomen: soft , nontender, nondistended, bowel sounds positive Extremities: no edema clubbing or cyanosis Skin: no rash or lesions Neurologic: no gross focal deficits Vital Signs - 12hr 08/09/18 08/09/18 08/09/18 04:44 05:46 08:34 Temperature 98.0 F Pulse Rate 84 84 84 Respiratory 24 Rate Blood Pressure 144/79 144/79 144/79 O2 Sat by Pulse 99 Oximetry 08/09/18 08/09/18 08/09/18 10:40 10:42 12:23 Temperature 98.7 F Pulse Rate 87 87 67 Respiratory 18 Rate Blood Pressure 118/71 118/71 148/86 O2 Sat by Pulse 100 Oximetry 08/09/18 08/09/18 13:09 13:10 Temperature Pulse Rate 67 Respiratory Rate Blood Pressure 148/86 148/86 O2 Sat by Pulse Oximetry CBC and BMP: 08/09/18 11:06 08/09/18 04:34 ABG, PT/INR, D-dimer: ABG POC ABG pH 7.126 (7.35-7.45) L 08/07/18 18:25 POC ABG pO2 217 (80-105) H 08/07/18 18:25 POC ABG HCO3 3.4 (22-26 mml/L) 08/07/18 18:25 POC ABG Total CO2 < 5 (23-27mmol/L) 08/07/18 18:25 POC ABG O2 Sat 100 08/07/18 18:25 PT/INR, D-dimer PT 13.8 Sec. (12.2-14.9) 08/07/18 17:22 INR 1.00 (0.87-1.13) 08/07/18 17:22 Abnormal lab findings: Abnormal Labs 08/07/18 08/07/18 08/07/18 17:14 17:22 17:22 WBC 14.9 H Hgb 11.3 L Hct MCV 103 H MCHC 27 L RDW Lymph % (Auto) [place] # Seg Neutrophils % Seg Neuts % (Manual) 76.0 H Lymphocytes % (Manual) 12.0 L Monocytes % (Manual) 11.0 H Seg Neutrophils # Seg Neutrophils # Man 11.3 H Monocytes # (Manual) 1.6 H APTT POC ABG pH POC ABG pO2 VBG pH Sodium Potassium Chloride Carbon Dioxide BUN Creatinine Glucose POC Glucose > 500 H Hemoglobin A1c Lactic Acid 14.00 H* Calcium Phosphorus Magnesium Alkaline Phosphatase Troponin T Albumin Urine Creatinine Urine Total Protein 08/07/18 08/07/18 08/07/18 17:22 17:22 17:22 WBC Hgb Hct MCV MCHC RDW Lymph % (Auto) [place] # Seg Neutrophils % Seg Neuts % (Manual) Lymphocytes % (Manual) Monocytes % (Manual) Seg Neutrophils # Seg Neutrophils # Man Monocytes # (Manual) APTT 20.1 L POC ABG pH POC ABG pO2 VBG pH 7.012 L* Sodium 127 L Potassium 8.4 H* Chloride 73.9 L Carbon Dioxide 4 L* BUN 65 H Creatinine 4.5 H Glucose 1580 H* POC Glucose Hemoglobin A1c Lactic Acid Calcium Phosphorus Magnesium Alkaline Phosphatase 173 H Troponin T 0.104 H* Albumin 3.7 L Urine Creatinine Urine Total Protein 08/07/18 08/07/18 08/07/18 18:25 18:46 18:46 WBC Hgb Hct MCV MCHC RDW Lymph % (Auto) [place] # Seg Neutrophils % Seg Neuts % (Manual) Lymphocytes % (Manual) Monocytes % (Manual) Seg Neutrophils # Seg Neutrophils # Man Monocytes # (Manual) APTT POC ABG pH 7.126 L POC ABG pO2 217 H VBG pH Sodium Potassium Chloride Carbon Dioxide BUN Creatinine Glucose POC Glucose Hemoglobin A1c Lactic Acid 12.00 H* Calcium Phosphorus Magnesium Alkaline Phosphatase Troponin T 0.090 H Albumin Urine Creatinine Urine Total Protein 08/07/18 08/07/18 08/07/18 18:46 18:46 18:46 WBC Hgb Hct MCV MCHC RDW Lymph % (Auto) [place] # Seg Neutrophils % Seg Neuts % (Manual) Lymphocytes % (Manual) Monocytes % (Manual) Seg Neutrophils # Seg Neutrophils # Man Monocytes # (Manual) APTT POC ABG pH POC ABG pO2 VBG pH Sodium 131 L 133 L Potassium 8.0 H* 8.0 H* Chloride 77.7 L 80.5 L Carbon Dioxide 6 L* 6 L* BUN 66 H 67 H Creatinine 4.5 H 4.9 H Glucose 1619 H* 1619 H* POC Glucose Hemoglobin A1c Lactic Acid Calcium Phosphorus 12.40 H Magnesium 3.00 H Alkaline Phosphatase Troponin T Albumin Urine Creatinine Urine Total Protein 08/07/18 08/07/18 08/07/18 19:09 20:00 20:00 WBC Hgb Hct MCV MCHC RDW Lymph % (Auto) [place] # Seg Neutrophils % Seg Neuts % (Manual) Lymphocytes % (Manual) Monocytes % (Manual) Seg Neutrophils # Seg Neutrophils # Man Monocytes # (Manual) APTT POC ABG pH POC ABG pO2 VBG pH Sodium 129 L Potassium Chloride 76.7 L Carbon Dioxide BUN 69 H Creatinine 4.5 H Glucose POC Glucose Hemoglobin A1c 10.2 H Lactic Acid Calcium Phosphorus 12.20 H Magnesium 3.00 H Alkaline Phosphatase Troponin T Albumin Urine Creatinine Urine Total Protein 08/07/18 08/07/18 08/07/18 20:00 20:30 21:00 WBC Hgb Hct MCV MCHC RDW Lymph % (Auto) [place] # Seg Neutrophils % Seg Neuts % (Manual) Lymphocytes % (Manual) Monocytes % (Manual) Seg Neutrophils # Seg Neutrophils # Man Monocytes # (Manual) APTT POC ABG pH POC ABG pO2 VBG pH Sodium 133 L Potassium 6.1 H* D Chloride 86.5 L Carbon Dioxide 5 L* BUN 64 H Creatinine 4.3 H Glucose 1211 H* POC Glucose Hemoglobin A1c Lactic Acid 11.00 H* 7.60 H* Calcium Phosphorus Magnesium Alkaline Phosphatase Troponin T Albumin Urine Creatinine Urine Total Protein 08/07/18 08/07/18 08/07/18 22:47 22:47 22:47 WBC Hgb Hct MCV MCHC RDW Lymph % (Auto) [place] # Seg Neutrophils % Seg Neuts % (Manual) Lymphocytes % (Manual) Monocytes % (Manual) Seg Neutrophils # Seg Neutrophils # Man Monocytes # (Manual) APTT POC ABG pH POC ABG pO2 VBG pH Sodium Potassium Chloride 91.2 L Carbon Dioxide 11 L BUN 69 H Creatinine 4.6 H Glucose 1417 H* POC Glucose Hemoglobin A1c Lactic Acid 5.10 H* Calcium Phosphorus Magnesium Alkaline Phosphatase Troponin T 0.098 H Albumin Urine Creatinine Urine Total Protein 08/08/18 08/08/18 08/08/18 00:17 00:17 01:25 WBC Hgb Hct MCV MCHC RDW Lymph % (Auto) [place] # Seg Neutrophils % Seg Neuts % (Manual) Lymphocytes % (Manual) Monocytes % (Manual) Seg Neutrophils # Seg Neutrophils # Man Monocytes # (Manual) APTT POC ABG pH POC ABG pO2 VBG pH Sodium Potassium 3.3 L 3.5 L Chloride 93.3 L 95.6 L Carbon Dioxide 17 L 18 L BUN 66 H 65 H Creatinine 4.6 H 4.6 H Glucose 1376 H* 1231 H* POC Glucose Hemoglobin A1c Lactic Acid 3.90 H* Calcium 8.2 L Phosphorus Magnesium Alkaline Phosphatase Troponin T Albumin Urine Creatinine Urine Total Protein 08/08/18 08/08/18 08/08/18 01:25 02:34 03:11 WBC Hgb Hct MCV MCHC RDW Lymph % (Auto) [place] # Seg Neutrophils % Seg Neuts % (Manual) Lymphocytes % (Manual) Monocytes % (Manual) Seg Neutrophils # Seg Neutrophils # Man Monocytes # (Manual) APTT POC ABG pH POC ABG pO2 VBG pH Sodium Potassium Chloride Carbon Dioxide BUN 65 H 64 H Creatinine 4.6 H 4.4 H Glucose 1067 H* 1020 H* POC Glucose Hemoglobin A1c Lactic Acid 3.60 H* Calcium Phosphorus Magnesium Alkaline Phosphatase Troponin T Albumin Urine Creatinine Urine Total Protein 08/08/18 08/08/18 08/08/18 03:11 04:20 04:20 WBC Hgb Hct MCV MCHC RDW Lymph % (Auto) [place] # Seg Neutrophils % Seg Neuts % (Manual) Lymphocytes % (Manual) Monocytes % (Manual) Seg Neutrophils # Seg Neutrophils # Man Monocytes # (Manual) APTT POC ABG pH POC ABG pO2 VBG pH Sodium 146 H Potassium 3.5 L Chloride Carbon Dioxide BUN 63 H Creatinine 4.3 H Glucose 875 H* POC Glucose Hemoglobin A1c Lactic Acid 2.80 H* 2.70 H* Calcium Phosphorus Magnesium Alkaline Phosphatase Troponin T Albumin Urine Creatinine Urine Total Protein 08/08/18 08/08/18 08/08/18 05:10 05:10 06:19 WBC Hgb Hct MCV MCHC RDW Lymph % (Auto) [place] # Seg Neutrophils % Seg Neuts % (Manual) Lymphocytes % (Manual) Monocytes % (Manual) Seg Neutrophils # Seg Neutrophils # Man Monocytes # (Manual) APTT POC ABG pH POC ABG pO2 VBG pH 7.454 H Sodium 148 H 149 H Potassium 3.3 L 3.4 L Chloride Carbon Dioxide BUN 61 H 59 H Creatinine 4.4 H 4.3 H Glucose 785 H* 644 H* POC Glucose Hemoglobin A1c Lactic Acid Calcium Phosphorus Magnesium Alkaline Phosphatase Troponin T Albumin Urine Creatinine Urine Total Protein 08/08/18 08/08/18 08/08/18 06:19 08:14 08:14 WBC Hgb Hct MCV MCHC RDW Lymph % (Auto) [place] # Seg Neutrophils % Seg Neuts % (Manual) Lymphocytes % (Manual) Monocytes % (Manual) Seg Neutrophils # Seg Neutrophils # Man Monocytes # (Manual) APTT POC ABG pH POC ABG pO2 VBG pH Sodium 147 H Potassium 3.2 L Chloride 109.6 H Carbon Dioxide BUN 58 H Creatinine 4.2 H Glucose 423 H POC Glucose Hemoglobin A1c Lactic Acid 3.40 H* 3.30 H* Calcium 8.3 L Phosphorus Magnesium Alkaline Phosphatase Troponin T Albumin Urine Creatinine Urine Total Protein 08/08/18 08/08/18 08/08/18 09:23 09:23 11:32 WBC Hgb Hct MCV MCHC RDW Lymph % (Auto) [place] # Seg Neutrophils % Seg Neuts % (Manual) Lymphocytes % (Manual) Monocytes % (Manual) Seg Neutrophils # Seg Neutrophils # Man Monocytes # (Manual) APTT POC ABG pH POC ABG pO2 VBG pH Sodium 153 H Potassium 3.3 L Chloride 110.8 H Carbon Dioxide BUN 58 H Creatinine 4.3 H Glucose 302 H POC Glucose 247 H Hemoglobin A1c Lactic Acid 3.10 H* Calcium Phosphorus Magnesium Alkaline Phosphatase Troponin T Albumin Urine Creatinine Urine Total Protein 08/08/18 08/08/18 08/08/18 12:04 13:57 14:15 WBC Hgb Hct MCV MCHC RDW Lymph % (Auto) [place] # Seg Neutrophils % Seg Neuts % (Manual) Lymphocytes % (Manual) Monocytes % (Manual) Seg Neutrophils # Seg Neutrophils # Man Monocytes # (Manual) APTT POC ABG pH POC ABG pO2 VBG pH Sodium 155 H D Potassium 8.1 H* D Chloride 108.3 H Carbon Dioxide BUN 46 H Creatinine 3.1 H 4.2 H Glucose 115 H POC Glucose 200 H Hemoglobin A1c Lactic Acid Calcium 6.5 L D Phosphorus Magnesium Alkaline Phosphatase Troponin T Albumin Urine Creatinine Urine Total Protein 08/08/18 08/08/18 08/08/18 15:26 19:03 19:12 WBC Hgb Hct MCV MCHC RDW Lymph % (Auto) [place] # Seg Neutrophils % Seg Neuts % (Manual) Lymphocytes % (Manual) Monocytes % (Manual) Seg Neutrophils # Seg Neutrophils # Man Monocytes # (Manual) APTT POC ABG pH POC ABG pO2 VBG pH Sodium 155 H Potassium Chloride 111.3 H Carbon Dioxide 31 H D BUN 57 H Creatinine 4.1 H Glucose 108 H POC Glucose 130 H Hemoglobin A1c Lactic Acid Calcium Phosphorus Magnesium Alkaline Phosphatase Troponin T Albumin Urine Creatinine 177.0 H Urine Total Protein 183 H 08/08/18 08/08/18 08/09/18 19:12 20:45 03:25 WBC Hgb Hct MCV MCHC RDW Lymph % (Auto) [place] # Seg Neutrophils % Seg Neuts % (Manual) Lymphocytes % (Manual) Monocytes % (Manual) Seg Neutrophils # Seg Neutrophils # Man Monocytes # (Manual) APTT POC ABG pH POC ABG pO2 VBG pH Sodium 154 H Potassium Chloride 111.0 H Carbon Dioxide BUN 56 H Creatinine 4.0 H Glucose POC Glucose 115 H 204 H Hemoglobin A1c Lactic Acid Calcium Phosphorus Magnesium Alkaline Phosphatase Troponin T Albumin Urine Creatinine Urine Total Protein 08/09/18 08/09/18 08/09/18 04:34 07:33 10:57 WBC Hgb Hct MCV MCHC RDW Lymph % (Auto) [place] # Seg Neutrophils % Seg Neuts % (Manual) Lymphocytes % (Manual) Monocytes % (Manual) Seg Neutrophils # Seg Neutrophils # Man Monocytes # (Manual) APTT POC ABG pH POC ABG pO2 VBG pH Sodium 153 H Potassium Chloride 113.1 H Carbon Dioxide BUN 57 H Creatinine 3.9 H Glucose 229 H POC Glucose 301 H 220 H Hemoglobin A1c Lactic Acid Calcium 8.2 L Phosphorus Magnesium Alkaline Phosphatase Troponin T Albumin Urine Creatinine Urine Total Protein 08/09/18 11:06 WBC 18.8 H Hgb 10.3 L Hct 30.6 L D MCV 82 L MCHC RDW 12.1 L Lymph % (Auto) 11.4 L [place] # 1.1 H Seg Neutrophils % 82.3 H Seg Neuts % (Manual) Lymphocytes % (Manual) Monocytes % (Manual) Seg Neutrophils # 15.5 H Seg Neutrophils # Man Monocytes # (Manual) APTT POC ABG pH POC ABG pO2 VBG pH Sodium Potassium Chloride Carbon Dioxide BUN Creatinine Glucose POC Glucose Hemoglobin A1c Lactic Acid Calcium Phosphorus Magnesium Alkaline Phosphatase Troponin T Albumin Urine Creatinine Urine Total Protein
--- NOTE | 2018-08-09 13:48 | Discharge Summary ---
Providers - Providers Date of Admission: 08/07/18 19:02 Attending physician: PHIL BURGESS MD 08/07/18 18:15 Consult to Physician [CONS] Routine Comment: Consulting Provider: HUMBERTO MACDONALD Physician Instructions: Reason For Exam: Acute renal failure, Hyperkalemia 08/07/18 19:37 Consult to Physician [CONS] Routine Comment: Consulting Provider: MATT INFANTE Physician Instructions: Reason For Exam: DKA 08/08/18 18:56 Consult to Physician [CONS] Routine Comment: Consulting Provider: TROY AKINS Physician Instructions: Reason For Exam: sepssi Hospitalization Condition: Critical Hospital course: 53-year-old man who was found unresponsive, he was found to have very elevated glucose. The patient has insulin pump, it was not attached to him at the time of admission. He was found by his roommates who didn't called the EMS, he had vomited on itself and urinated on himself at that time. CT head no acute findings Chest x-ray suggestive of emphysema, no acute findings Diagnoses Hyperglycemic hyperosmolar nonketotic state Pseudohyponatremia Acute kidney injury due to vasomotor nephropathy Acute metabolic encephalopathy Uncontrolled diabetes Sepsis with organ dysfunction gram neg bacteremia htn urgency Plan -The patient was treated with insulin drip, he was transitioned to subcutaneous insulins. He received IV fluids, he was found to have gram-negative bacteremia. He was treated with IV antibiotics, he was being seen by infectious disease. He was seen by nephrology for acute kidney injury, his kidney function was improving with IV fluids -His blood pressure medications were optimized. After discussing with physician at [facility], they decided to transfer him to fany physician at [facility]. Disposition: - TO HOME OR SELFCARE Time spent for discharge: 33 mins Core Measure Documentation - Palliative Care Palliative Care/ Comfort Measures: Not Applicable - Core Measures Any of the following diagnoses?: none Exam - Constitutional Vitals: Temp Pulse Resp BP Pulse Ox 98.7 F 67 18 148/86 100 08/09/18 12:23 08/09/18 13:09 08/09/18 12:23 08/09/18 13:10 08/09/18 12:23 General appearance: Present: no acute distress, well-nourished - EENT Eyes: Present: PERRL ENT: hearing intact, clear oral mucosa - Neck Neck: Present: supple, normal ROM - Respiratory Respiratory effort: normal Respiratory: bilateral: CTA - Cardiovascular Heart Sounds: Present: S1 & S2. Absent: rub, click - Extremities Extremities: pulses symmetrical, No edema Peripheral Pulses: within normal limits - Abdominal General gastrointestinal: Present: soft, non-tender, non-distended, normal bowel sounds Male genitourinary: Present: normal - Integumentary Integumentary: Present: clear, warm, dry - Musculoskeletal Musculoskeletal: gait normal, strength equal bilaterally - Psychiatric Psychiatric: appropriate mood/affect, intact judgment & insight - Neurologic Neurologic: CNII-XII intact, moves all extremities Plan Follow up with: CHRISSY MCKEON MD [Referring] - 3-5 Days
--- NOTE | 2018-08-09 15:12 | Progress Note ---
Assessment and Plan Impression * Acute kidney injury * Hyperkalemia * DKA * Severe metabolic acidosis secondary to above * Hypernatremia Recommendations * Patient's renal function is stable. He is currently nonoliguric. * Unclear if he has a component of CKD or not. Patient does not have knowledge of renal dysfunction * His urine shows 2+ dipstick protein and small blood and 16 RBCs per high-power field. * Renal ultrasound pending. * Follow up results of fractional excretion of sodium as well as vasculitis workup * Patient is currently hypernatremic. Continue IV fluid half normal saline for now. Encourage by mouth fluid intake * He may have some degree of underlying chronic kidney disease. Baseline renal function is not known * Avoid nephrotoxins * Monitor fluid status and electrolytes closely Subjective Date of service: 08/09/18 Interval history: Patient is awake and alert. Appears comfortable. Has indwelling Ferrari catheter in place. Objective - Vital Signs Vital signs: Vital Signs - 12hr 08/09/18 08/09/18 08/09/18 04:44 05:46 08:34 Temperature 98.0 F Pulse Rate 84 84 84 Respiratory 24 Rate Blood Pressure 144/79 144/79 144/79 O2 Sat by Pulse 99 Oximetry 08/09/18 08/09/18 08/09/18 10:40 10:42 12:23 Temperature 98.7 F Pulse Rate 87 87 67 Respiratory 18 Rate Blood Pressure 118/71 118/71 148/86 O2 Sat by Pulse 100 Oximetry 08/09/18 08/09/18 13:09 13:10 Temperature Pulse Rate 67 Respiratory Rate Blood Pressure 148/86 148/86 O2 Sat by Pulse Oximetry - General Appearance General appearance: well-developed, well-nourished, appears stated age EENT: PERRL, mucous membranes moist Neck: no JVD, no thyromegaly, no carotid bruit, supple Respiratory: Present: Clear to Ascultation Cardiology: regular, normal heart rate, S1S2, no murmurs Gastrointestinal: normal, normoactive bowel sounds Integumentary: other (no edema) - Lab 08/09/18 11:06 08/09/18 04:34 Most recent lab results Calcium 8.2 mg/dL (8.4-10.2) L 08/09/18 04:34 Phosphorus 12.20 mg/dL (2.5-4.5) H 08/07/18 20:00 Magnesium 3.00 mg/dL (1.7-2.3) H 08/07/18 20:00 Urine Creatinine 177.0 mg/dL (0.1-20.0) H 08/08/18 15:26 Urine Sodium 49 mmol/L 08/08/18 15:26 Urine Total Protein 183 mg/dL (5-11.8) H 08/08/18 15:26 Medications & Allergies - Medications Allergies/Adverse Reactions: Allergies No Known Allergies Allergy (Verified 08/07/18 17:35) Home Medications: Home Medications Medication Instructions Recorded Confirmed Last Taken Type AtorvaSTATin [Lipitor] 40 mg PO QHS 08/07/18 08/07/18 Unknown History Clopidogrel [Plavix] 75 mg PO DAILY 08/07/18 08/07/18 Unknown History Ergocalciferol [Vitamin D2] 50,000 units PO QWEEK 08/07/18 08/07/18 Unknown History Furosemide [Lasix TAB] 40 mg PO QDAY 08/07/18 08/07/18 Unknown History Metoprolol Tartrate 50 mg PO BID 08/07/18 08/07/18 Unknown History amLODIPine [Norvasc] 10 mg PO DAILY 08/07/18 08/07/18 Unknown History cloNIDine [Catapres] 0.2 mg PO TID 08/07/18 08/07/18 Unknown History hydrALAZINE [Apresoline TAB] 10 mg PO Q8HR 08/07/18 08/07/18 Unknown History Active Medications: Generic Name Dose Route Start Last Admin Trade Name Freq PRN Reason Stop Dose Admin Albuterol 2.5 mg 08/07/18 19:02 Proventil IH Q3HRT PRN Shortness Of Breath Amlodipine Besylate 10 mg 08/08/18 10:00 08/09/18 10:40 Norvasc PO Not Given DAILY JHON Atorvastatin Calcium 40 mg 08/07/18 22:00 08/08/18 21:46 Lipitor PO 40 mg QHS JHON Administration Clonidine HCl 0.2 mg 08/07/18 20:00 08/09/18 13:10 Catapres PO 0.2 mg TID JHON Administration Clopidogrel Bisulfate 75 mg 08/08/18 10:00 08/09/18 10:43 Plavix PO 75 mg DAILY JHON Administration Dextrose 0 ml 08/07/18 19:02 D50w (25gm) Syringe IV PRN PRN Hypoglycemia Ergocalciferol 50,000 unit 08/14/18 10:00 Vitamin D2 PO QWEEK JHON Heparin Sodium (Porcine) 5,000 unit 08/08/18 14:00 08/09/18 13:10 Heparin SUB-Q 5,000 unit Q8HR JHON Administration Hydralazine HCl 10 mg 08/07/18 22:00 08/09/18 13:09 Apresoline PO 10 mg Q8HR JHON Administration Hydralazine HCl 10 mg 08/08/18 18:44 Apresoline IV Q4HR PRN BP >160/100 Sodium Chloride 1,000 mls @ 125 mls/hr 08/08/18 14:00 08/09/18 05:48 Nacl 0.45% 1000 Ml IV 125 mls/hr DIRECT JOHN Administration Cefepime HCl 2 gm in 100 mls @ 200 mls/hr 08/08/18 16:00 08/09/18 10:43 Maxipime/Ns 2 Gm/100 Ml IV 200 mls/hr Q24HR JHON Administration Protocol Insulin Glargine 10 units 08/08/18 22:00 08/09/18 10:41 Lantus SUB-Q 10 units BID JHON Administration Insulin Human Lispro 0 unit 08/08/18 11:30 08/09/18 13:10 Humalog SUB-Q 4 unit AC JHON Administration Protocol Insulin Human Regular 0 units 08/08/18 22:00 08/08/18 22:56 Humulin R SUB-Q Not Given QHS [facility] Protocol Metoprolol Tartrate 50 mg 08/07/18 22:00 08/09/18 10:42 Lopressor PO 50 mg BID JHON Administration Nifedipine 60 mg 08/08/18 22:00 08/09/18 10:43 Procardia Xl PO 60 mg Q12HR JHON Administration Sodium Chloride 10 ml 08/07/18 22:00 08/09/18 10:30 Sodium Chloride Flush Syringe 10 Ml IV 10 ml BID JHON Administration Sodium Chloride 10 ml 08/07/18 19:02 Sodium Chloride Flush Syringe 10 Ml IV PRN PRN LINE FLUSH
[2018-08-09 17:42] VITALS: BP 121/75
[2018-08-13 20:45] LABS: Myeloperoxidase Antibody <1.0 AI (<1.0)
[2018-08-13 22:57] LABS: Albumin 2.7 g/dL (3.8-4.8); Gamma Globulin 1.4 g/dL (0.8-1.7)
[2018-08-14] MEDS ORDERED: VITAMIN D2 PO SCH (10:00)
[2018-08-15 21:11] LABS: ANA Screen, IFA Positive (Negative)
== END 2018-08-09 20:55 | disposition short-term general hospital (02) | DRG 871 ==
LOC: ED 17:05 → CC1 19:02 → 3A 08-08 15:34
PROVIDERS: ADMIT Internal Medicine; ATTEND Internal Medicine
PROC: 4A033R1 Measurement of Arterial Saturation, Peripheral, Percutaneous Approach (ICD-10-PCS; principal; 2018-08-07)
DX: A41.50 Gram-negative sepsis, unspecified (principal); N17.0 Acute kidney failure with tubular necrosis; G93.41 Metabolic encephalopathy; E13.11 Other specified diabetes mellitus with ketoacidosis with coma; E87.0 Hyperosmolality and hypernatremia; E86.1 Hypovolemia; E87.5 Hyperkalemia; I16.0 Hypertensive urgency; R65.20 Severe sepsis without septic shock; Z79.899 Other long term (current) drug therapy; Z79.84 Long term (current) use of oral hypoglycemic drugs
CPT/HCPCS: 36415; 70450; 71045; 80048; 80053; 80061; 80074; 80307; 80320; 81001; 82140; 82550; 82565; 82570; 82803; 82805; 82962; 83036; 83735; 84100; 84132; 84156; 84165; 84295; 84300; 84443; 84484; 85007; 85025; 85610; 85730; 86021; 86038; 86160; 86225; 87040; 87076; 87186; 93005; 93010; 94640; G0378; A9270-GY; G0480; J0610; J0692; J1644; J1815; J2543; J3480; J7030; J7070; J7120